=== PATIENT | female | born 1945 | race Caucasian/White ===

== ENCOUNTER 2017-05-16 12:30 | Outpatient (RCR) | payer MEDICARE, MEDICAID, SELFPAY | END 2017-05-16 13:00 | disposition home or self-care (01) | LOC: PT 12:30 | PROVIDERS: Family Provider Internal Medicine; PCP Internal Medicine; Visit Provider Internal Medicine | DX: I69.354 Hemiplegia and hemiparesis following cerebral infarction affecting left non-dominant side (principal) | CPT/HCPCS: 97110; 97116; 97530; G8978; G8979 ==

== ENCOUNTER → 2018-12-22 14:22 | Outpatient (CLI) | payer MEDICARE, MEDICAID, SELFPAY ==
[2018-12-29 12:53] LABS: KEPPRA (LEVETIRACETAM) 33.2 ug/mL (10.0-40.0)
== END ==
PROVIDERS: Family Provider Internal Medicine; PCP Internal Medicine; Visit Provider Family Medicine Geriatric Medicine
DX: G40.909 Epilepsy, unspecified, not intractable, without status epilepticus (principal)
CPT/HCPCS: 36415; 80177

== ENCOUNTER 2018-12-25 13:58 | Emergency (ER) | payer MEDICARE, MEDICAID, SELFPAY ==
[2018-12-25 14:02] VITALS: BP 85/71; PULSE 113; RESP 17; TEMP 37; O2SAT 94; BMI 31.4
--- NOTE | 2018-12-25 14:44 | EKG12_ITS ---
Test Reason : CP Blood Pressure : / mmHG Vent. Rate : 111 BPM Atrial Rate : 097 BPM P-R Int : 000 ms QRS Dur : 076 ms QT Int : 320 ms P-R-T Axes : 000 010 164 degrees QTc Int : 435 ms Atrial fibrillation Nonspecific ST and T wave abnormality Abnormal ECG Confirmed by JESSY DECKER, REAL ([id number]), video tape editor CONCEPCION PETERSON ([id number]) on 12/26/2018 12:11:11 PM Referred By: JULIANO/GEORGIE Confirmed By:REAL JIMÉNEZ MD
[2018-12-25 15:06] LABS: Absolute Lymphocyte Count 1.02 X10^3/ul (0.83-4.51); Absolute Neutrophil Count 5.5 X10^3/uL (2.0-7.7); Basophil# 0.02 X10^3/uL; Basophil% 0.3 % (0-1); Eosinophil# 0.05 X10^3/uL; Eosinophils% 0.7 % (0-5); Hematocrit 45.8 % (37-47); Hemoglobin 15.3 g/dl (12.0-15.0); Lymphocyte # 1.02 X10^3/ul (4.0); Lymphocyte % 14.4 % (19-41); Mean Corp Hgb Conc 33.4 g/gl (32-36); Mean Corpuscular Hgb 30.8 pg (27.0-32.0); Mean Corpuscular Volume 92.3 fL (81-99); Mean Platelet Vol. 10.7 fl (6.2-12.0); Monocyte# 0.55 X10^3/uL; Monocyte% 7.8 % (0-10); Neutrophil # 5.45 X10^3/uL (2.7-7.7); Neutrophil % 76.8 % (47-70); Platelet Count 295 K/mm3 (150-450); RBC Distribution Width CV 13.2 % (11.6-14.6); RBC Distribution Width SD 44.2 fl (35.1-43.9); Red Blood Count 4.96 M/mm3 (4.2-5.4); White Blood Count 7.1 K/mm3 (4.4-11.0)
[2018-12-25 15:07] VITALS: BP 119/77; PULSE 98; RESP 16; O2SAT 95; O2SAT 96
[2018-12-25 15:10] LABS: POSITIVE COUNT NO; POSITIVE DIFFERENTIAL NO; POSITIVE MORPHOLOGY NO
[2018-12-25 15:17] LABS: Anion Gap 6 (5-15); BUN 20 mg/dL (7-18); BUN/Creat Ratio 19.8 RATIO (10-20); Calcium,Total 9.9 mg/dL (8.5-10.1); Chloride 104 mmol/L (98-107); Creatinine, Serum 1.01 mg/dL (0.55-1.02); EST Glomerular Filtration Rate 57 mL/min (>60); Est Glom Filt Rate - Afr Amer 69 mL/min (>60); Estimated Creatinine Clearance 39.82 ml/min; Glucose 103 mg/dL (74-106); Sodium Level 141 mmol/L (136-145)
[2018-12-25] MEDS: 0.9% Normal Saline 1,000 ML 150 ML IV (15:18)
[2018-12-25] MEDS: dilTIAZem 25 MG/5 ML Vial 10 MG IV BOLUS (15:19)
[2018-12-25 15:37] LABS: BNP,B-Type NATRIURETIC PEPTIDE 71.2 pg/mL (0-100)
--- NOTE | 2018-12-25 15:39 | ED.DCSUM_ITS ---
History of Present Illness Chief Complaint: Palpitations Informant: Patient, Family Narrative: Patient was advised to come to the emergency department because of fast irregular pulse. She has no thoracic symptoms except for orthopnea that has been there for over a year. 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 She is mostly bed-ridden and wheelchair dependent. She has chronic edema of both legs that is unchanged. After her stroke, she had a seizure, and was put on Keppra which has been keeping her seizure-free for the past 2 years. Daughter witnessed the first seizure since then 5 days ago. She initially had twitching of her left lower extremity, this was preceded by loss of consciousness and what appeared to be tonic phase but she denies convulsing of her extremities. Saw her doctor the next day who sent out a Keppra level. Also seen by home health nurse who also reevaluated today and detected the fast irregular heartbeat, this was present the day after the seizure but it was thought to be related to the seizure, potentially. She has no history of cardiac dysrhythmias. She denies feeling any palpitations at any point time in the past week, or chest discomfort. She states she was recently diagnosed with breast cancer within the past 2 months and is still being worked up as an outpatient with regards to this. She has felt very stressed and anxious regarding this. - Past Medical History (1) Seizure disorder as sequela of cerebrovascular accident Status: Chronic (2) Hyperlipidemia Status: Chronic (3) CVA (cerebral vascular accident) Status: Chronic (4) HTN (hypertension) Status: Chronic Past Medical History - Allergies and Home Meds Allergies/Adverse Reactions: Allergies naproxen Adverse Reaction (Verified 12/25/18 14:02) Swelling Primary Care Physician: Osbaldo Petersen Chi, MD [Primary Care Provider] - Surgical History: pacemaker implantation Lives: With Family Smoking Status: Never smoker - Family History Maternal Family History: Reports: Heart Disease - age 89 Sibling Family History: Reports: Stroke Paternal Family History: Reports: Cancer - age 64 Review of Systems General: Denies: Chills, Fever, Sweats Eyes: Denies: Visual changes - bilaterally, Diplopia ENT: Denies: Rhinorrhea, Sore throat Cardiovascular: Denies: Chest pain, Palpitations Respiratory: Reports: Orthopnea. Denies: Dyspnea, Cough, Dyspnea on exertion Gastrointestinal: Denies: Abdominal pain, Nausea, Vomiting, Diarrhea, Melena, Hematochezia Genitourinary: Denies: Dysuria, Hematuria, Frequency Musculoskeletal: Reports: Swelling - BLE chronic. Denies: Back pain, Extremity Pain Skin: Denies: Rash, Wounds Neurological: Reports: Weakness - Pre-existing left-sided, unchanged, Numbness - Pre-existing left-sided, unchanged. Denies: Headache Physical Exam Vital Signs/Narrative: Vital Signs Temp Pulse Resp BP Pulse Ox 12/25/18 15:07 98 16 119/77 96 12/25/18 14:02 98.6 F 113 H 17 85/71 L 94 Inital Vital Signs reviewed: Yes General: Well nourished, Well developed, No Acute Distress Head: Normocephalic, Atraumatic Eyes: Perrl, EOMI ENT: Moist mucous membranes, No rhinorrhea Neck: Supple, Nontender Cardiovascular: No murmurs, Irregular, Tachycardia Respiratory: No distress, CTA bilaterally, Chest nontender, Diminished - throughout, symmetrically Abdomen: Soft, Nontender, Nondistended, Normal bowel sounds Back: Nontender, Normal Inspection Extremities: Nontender, Edema - 2+ BLE, symmetric. Negative for: Calf Tenderness Skin: Normal color, No rash, No Trauma Neurological: Alert, Oriented x3, Cranial nerves II-XII grossly intact, Parasthesia - LUE and LLE, Weakness - w/ contractures LUE and LLE Psychological: Normal affect, Normal Mood Diagnostic/Tx/Re-eval Laboratory Tests 12/25/18 12/25/18 12/25/18 Range/Units 15:20 14:55 14:45 WBC 7.1 (4.4-11.0) K/mm3 RBC 4.96 (4.2-5.4) M/mm3 Hgb 15.3 H (12.0-15.0) g/dl Hct 45.8 (37-47) % MCV 92.3 (81-99) fL MCH 30.8 (27.0-32.0) pg MCHC 33.4 (32-36) g/gl RDW 13.2 (11.6-14.6) % RDW Differential 44.2 H (35.1-43.9) fl Plt Count 295 (150-450) K/mm3 MPV 10.7 (6.2-12.0) fl Immature Gran % (Auto) 0.000 (0.0-0.9) % Neut % (Auto) 76.8 H (47-70) % Lymph % (Auto) 14.4 L (19-41) % [place] % (Auto) 7.8 (0-10) % Eos % (Auto) 0.7 (0-5) % Baso % (Auto) 0.3 (0-1) % Absolute Neuts (auto) 5.5 (2.0-7.7) X10^3/uL Absolute Lymphs (auto) 1.02 (0.83-4.51) X10^3/ul Total Counted Not Reportable APTT 36.0 (24.1-36.2) Seconds Sodium (136-145) mmol/L Potassium (3.5-5.1) mmol/L Chloride (98-107) mmol/L Carbon Dioxide (21.0-32.0) mmol/L Anion Gap (5-15) BUN (7-18) mg/dL Creatinine (0.55-1.02) mg/dL Estim Creat Clear Calc ml/min Est GFR (MDRD) Af Amer (>60) mL/min Est GFR (MDRD) Non-Af (>60) mL/min BUN/Creatinine Ratio (10-20) RATIO Glucose (74-106) mg/dL Calcium (8.5-10.1) mg/dL Troponin I (<0.045) ng/mL B-Natriuretic Peptide 71.2 (0-100) pg/mL 12/25/18 Range/Units 14:45 WBC (4.4-11.0) K/mm3 RBC (4.2-5.4) M/mm3 Hgb (12.0-15.0) g/dl Hct (37-47) % MCV (81-99) fL MCH (27.0-32.0) pg MCHC (32-36) g/gl RDW (11.6-14.6) % RDW Differential (35.1-43.9) fl Plt Count (150-450) K/mm3 MPV (6.2-12.0) fl Immature Gran % (Auto) (0.0-0.9) % Neut % (Auto) (47-70) % Lymph % (Auto) (19-41) % [place] % (Auto) (0-10) % Eos % (Auto) (0-5) % Baso % (Auto) (0-1) % Absolute Neuts (auto) (2.0-7.7) X10^3/uL Absolute Lymphs (auto) (0.83-4.51) X10^3/ul Total Counted APTT (24.1-36.2) Seconds Sodium 141 (136-145) mmol/L Potassium 4.0 (3.5-5.1) mmol/L Chloride 104 (98-107) mmol/L Carbon Dioxide 31.0 (21.0-32.0) mmol/L Anion Gap 6 (5-15) BUN 20 H (7-18) mg/dL Creatinine 1.01 (0.55-1.02) mg/dL Estim Creat Clear Calc 39.82 ml/min Est GFR (MDRD) Af Amer 69 (>60) mL/min Est GFR (MDRD) Non-Af 57 L (>60) mL/min BUN/Creatinine Ratio 19.8 (10-20) RATIO Glucose 103 (74-106) mg/dL Calcium 9.9 (8.5-10.1) mg/dL Troponin I < 0.015 (<0.045) ng/mL B-Natriuretic Peptide (0-100) pg/mL - Rhythm Strip Rhythm Strip: A-fib Rate: 111 Ectopy: None - EKG Initial EKG Interpretation: Atrial Fibrillation, Non-Specific ST Changes - laterally Prior: Changed - c/w 2016, NSR - Medical Decision Making Blood work is unremarkable including BNP. The patient really wanted to pick and choose her work-up here in the emergency department; I wanted to perform a CT of the head to ensure she had no bleeding or worsening of her stroke given her rare breakthrough seizure while compliant with Keppra. She adamantly refused the CT of the head, mainly because of the dose of radiation, we discussed the risk and benefits of this and her recent diagnosis of breast cancer, she understands but still refuses the test. Similarly, she refused chest x-ray. I told her I was concerned about possibility of pleural effusions since she was having orthopnea, and since this may mean admission to the hospital if she was symptomatic with it. She understands this and refuses, saying that she had a chest x-ray recently and it was unremarkable and her orthopnea has been present for over a year and is unchanged. I gave her Cardizem and IV fluids, her pressure remained stable and over 100 systolic, her heart rate remained controlled between 70 and 95. She had no symptoms while in the emergency department or seizures. I discussed with Dr. Camp, [facility] for cardiology; he recommended that we start Cardizem CD 180 mg daily while discontinuing the Procardia XL. He also recommended after we discussed her neurologic status and low risk for fall/injury, that we start Eliquis 5 mg twice daily and discontinue the Plavix, continuing the aspirin and her other medications. I discussed this with the patient, she adamantly refuses to start anticoagulation and states instead, she will accept the higher risk of stroke due to atrial fibrillation and continue her aspirin and Plavix, speaking with cardiology at her scheduled appointment next month. Daughter was present for all of these discussions, they were both very pleasant in their refusal of work-up and care, and according to cardiology recommendation, will be discharged to follow-up as an outpatient with recommended rate control. Since she is refusing anticoagulation I recommend she continue the aspirin and Plavix. I also recommend that she follow-up with her PCP for recheck of her vital signs, they also have a home health nurse to come and check them as well. ED Disposition - Plan for ED Patient: Disposition: Home or Assisted Living Diagnosis: New onset atrial fibrillation, Breakthrough seizure, Seizure disorder as sequela of cerebrovascular accident Instructions: Atrial Fibrillation Prescriptions: Diltiazem CD [Cardizem CD] 180 mg PO DAILY #30 cap Transmission Status: Pending to [id number] Referrals: Osbaldo Petersen Chi, MD [Primary Care Provider] - 1 Week Luís Solitario MD [STAFF PHYSICIAN] - Keep Tony appointment (May call for sooner appointment if available)
[2018-12-25 16:28] VITALS: BP 106/68; PULSE 69; RESP 16; O2SAT 98
[2018-12-25 17:06] VITALS: BP 114/71; PULSE 95; RESP 16; O2SAT 98
[2018-12-25 18:13] VITALS: BP 117/83; PULSE 89; RESP 16
--- NOTE | 2018-12-29 23:29 | ED.RN ---
OPENED CHART FOR PT, ASKING A QUESTION ABOUT WHAT MEDICATION THAT DR JACQUES RECOMMENDED
== END 2018-12-25 18:13 | disposition home or self-care (01) ==
PROVIDERS: Emergency Provider Emergency Medicine; Family Provider Family Medicine Geriatric Medicine; PCP Family Medicine Geriatric Medicine
DX: I48.91 Unspecified atrial fibrillation (principal); I69.354 Hemiplegia and hemiparesis following cerebral infarction affecting left non-dominant side; G40.909 Epilepsy, unspecified, not intractable, without status epilepticus; I10 Essential (primary) hypertension; E78.5 Hyperlipidemia, unspecified; R06.01 Orthopnea; Z74.01 Bed confinement status; Z99.3 Dependence on wheelchair; Z88.6 Allergy status to analgesic agent; Z79.02 Long term (current) use of antithrombotics/antiplatelets; Z79.82 Long term (current) use of aspirin; Z79.899 Other long term (current) drug therapy; Z95.0 Presence of cardiac pacemaker
CPT/HCPCS: 80048; 83880; 84484; 85025; 85730; 93005; 96361; 96374; 99285; J7030; A4216

== ENCOUNTER → 2019-01-23 14:44 | Outpatient (CLI) | payer MEDICARE, MEDICAID, SELFPAY ==
[2019-01-23 13:14] VITALS: BMI 29.8
[2019-01-23 16:25] LABS: T4 Total, Thyroxin 9.7 ug/dL (4.8-13.9)
== END ==
PROVIDERS: Family Provider Internal Medicine; PCP Internal Medicine; Referring Provider Internal Medicine Cardiovascular Disease; Visit Provider Internal Medicine Cardiovascular Disease
DX: I48.91 Unspecified atrial fibrillation (principal)
CPT/HCPCS: 36415; 84436; 84443

== ENCOUNTER → 2019-01-27 06:30 | Outpatient (CLI) | payer MEDICARE, MEDICAID, SELFPAY ==
[2019-01-23 13:14] VITALS: BMI 29.8
--- NOTE | 2019-01-27 06:34 | ECHOCS_ITS ---
Reason For Study: Afib/Flutter Procedure This was a 2D Doppler, Color Flow transthoracic echocardiogram. The study was technically difficult. Contrast injection was performed. Patient was scanned sitting up, patient would not lay on left side or flat for imaging. No Strain performed due to needed use of Definity. Left Ventricle Normal LV size. Left ventricular systolic function is normal. The estimated ejection fraction is 65 %. Unable to assess diastolic dysfunction. No regional wall motion abnormalities noted. Right Ventricle Normal RV size. Normal systolic function. Atria The left atrium is mildly enlarged. Normal right atrium. No doppler evidence for ASD. Mitral Valve There is no mitral annular calcification. Normal mitral valve. Trivial mitral valve insufficiency. Tricuspid Valve Normal tricuspid valve. Trivial tricuspid valve insufficiency. Right ventricular systolic pressure estimated to be 32 mmHg. Aortic Valve Trisinus/trileaflet aortic valve. Mild focal aortic valve thickening. Pulmonic Valve The pulmonic valve is not well visualized. Great Vessels Normal sized aortic root. Pericardium/Pleural No pericardial effusion. Epicardial fat. Medication 22 gauge I.V. with prn adaptor inserted into right arm. Diluted definity 2ml given slow IV push to enhance endocardial definition. MMode/2D Measurements & Calculations LVIDd: 2.8 cm IVSd: 1.2 cm Ao root diam: 3.1 cm LVIDs: 1.7 cm LVPWd: 1.3 cm FS: 37.2 % LAV(MOD-sp4): 48.4 ml LA A4 area: 18.6 cm2 RA A4 area: 12.9 cm2 Time Measurements MV dec time: 0.23 sec Doppler Measurements & Calculations MV E max ramón: 65.7 cm/sec PA V2 max: 105.0 cm/sec TR max ramón: 270.1 cm/sec MV A max ramón: 35.3 cm/sec TR max P.2 mmHg MV E/A: 1.9 Interpretation Summary The study was technically difficult. Contrast injection was performed. Left ventricular systolic function is normal. The estimated ejection fraction is 65 %. The left atrium is mildly enlarged. Trivial mitral valve insufficiency. Trivial tricuspid valve insufficiency. Mild focal aortic valve thickening. Epicardial fat. Right ventricular systolic pressure estimated to be 32 mmHg. Unable to assess diastolic dysfunction. Ordering Physician: Luís Solitario Referring Physician: Nelia Quinonez M.D. Performed By: Bc Herrera RCS
--- NOTE | 2019-01-27 09:37 | STRESSREP ---
Stress Test Report Date: 01-27-19 Procedure: Pharmacologic stress nuclear imaging study Indications: Atrial fibrillation; sick sinus syndrome; permanent pacemaker placement; preoperative cardiovascular evaluation Consent: Per the patient Procedure: The patient underwent pharmacologic (Regadenoson) evaluation with a peak heart rate of 117 beats per minute (79 %predicted maximal heart rate) and a peak blood pressure of 118/70 mmHg. The baseline ECG demonstrated atrial fibrillation; nonspecific ST/T wave abnormality. The peak pharmacologic ECG demonstrated no obvious ECG changes. There were intermittent electronic ventricular paced beats pre-infusion. There was no complaint of chest discomfort during pharmacologic infusion or recovery. The examination was discontinued secondary to completion of protocol. Impression: 1. Pharmacologic (Regadenoson) evaluation 2. Peak pharmacologic ECG with continued atrial fibrillation with nonspecific ST and T wave abnormality. 3. There were intermittent electronic ventricular paced beats pre-infusion. 4. Nuclear images pending Myocardial perfusion imaging study: Technique: The patient was injected with 11.2 millicuries of technetium 99m Cardiolite and subsequently rest SPECT Cardiolite nuclear imaging was obtained in the horizontal long, vertical long, and short axis views. The patient underwent pharmacologic (Regadenoson) evaluation with a peak heart rate of 117 beats per minute (79 % percent predicted maximal heart rate) and a peak blood pressure of 118/70 mmHg. The patient was injected with 34.3 millicuries of technetium 99m Cardiolite and subsequently stress SPECT Cardiolite nuclear imaging was obtained in the horizontal long, vertical long, and short axis views. A gated Cardiolite study at peak stress was obtained. Interpretation: Rest and stress SPECT Cardiolite nuclear imaging status post realignment, normalization, and attenuation correction demonstrate at rest the appearance of diminished tracer uptake in portions of the basal inferior septal, basal inferior, basal inferolateral segments which appears to improve and/or normalize following stress. There is end systolic thickening and brightening. The gated Cardiolite study demonstrates myocardial thickening and inward wall motion. The reported LVEF is 86 %. Impression: 1. Rest and stress SPECT current nuclear imaging demonstrate myocardial perfusion changes at rest which appear to improve and/or normalize following stress appearing compatible with the effects of shifting soft tissue attenuation/artifact with no myocardial perfusion changes considered diagnostic for associated stress-induced myocardial ischemia. 2. The gated Cardiolite study reports an LVEF of 86 %. This note was generated with [employer] software. It may contain incorrect words, spelling, and punctuation that were not noted in checking the note before signing.
== END ==
PROVIDERS: Family Provider Internal Medicine; PCP Internal Medicine; Referring Provider Internal Medicine Cardiovascular Disease; Visit Provider Internal Medicine Cardiovascular Disease
DX: I48.91 Unspecified atrial fibrillation (principal); I48.92 Unspecified atrial flutter; I49.5 Sick sinus syndrome; R06.02 Shortness of breath
CPT/HCPCS: 78452; 93017; 93306; A9500; Q9957; A4216; C8929; J2785

== ENCOUNTER 2023-05-31 10:04 | Observation (INO) | payer MEDICARE, MEDICAID, SELFPAY ==
[2023-05-31] VITALS (11 sets, daily range): BP systolic 130–190; BP diastolic 51–102; PULSE 65–90; RESP 16–22; TEMP 35.6; O2SAT 94–100; BMI 22.6
--- NOTE | 2023-05-31 10:15 | ED.RN ---
Patient has a witnessed seizure that lasted approx. 2 minutes. Pt. was orally suctioned, PIV initiated and nonrebreather placed on patient.
--- NOTE | 2023-05-31 10:22 | CT_ITS ---
STUDY: CT ABDOMEN AND PELVIS WITH CONTRAST REASON FOR EXAM: Female, 77 years old. Abdominal pain. Syncopal episode. RADIATION DOSAGE (If Supplied By Facility): CTDIvol = ( 13.21 ) mGy, DLP = ( 835.31 ) mGycm TECHNIQUE: Transaxial images were obtained from the dome of the diaphragm to the symphysis pubis without oral contrast. IV 100mL Isovue-370 was administered. Sagittal and coronal images were reconstructed. Individualized dose optimization techniques were used for this CT. COMPARISON: None. FINDINGS: Mild degree of increased markings at the lung bases suggest some bibasilar atelectasis. A right-sided dual-chamber pacemaker is seen. Coronary artery calcification. There is decreased attenuation of the liver consistent with steatosis. Multiple small gallstones. Mildly dilated gallbladder lumen. Normal spleen. There is diffuse atrophy of the pancreas. Normal bilateral adrenal glands. Nonobstructive tiny calculi in the right kidney. There is a 1.3 cm calculus in the right renal pelvis. This causes a mild degree of right hydronephrosis. Punctate nonobstructive calculus in the midpole calyx of the left kidney. Normal visualized stomach. Normal small intestine. Large amount of fecal material is seen in the rectosigmoid colon. The appendix is visualized and appears normal. Normal abdominal aorta. Normal inferior vena cava. Normal retroperitoneum. Normal urinary bladder. Calcified fibroid uterus. Normal abdominal wall. There are diffuse degenerative changes of the visualized lumbar spine. CT/Abdomen/Pelvis W IV Cont ONLY IMPRESSION: Multiple small gallstones with mild dilatation of the gallbladder lumen. 1.3 mm calculus in the right renal pelvis causing mild degree of right hydronephrosis. Electronically Signed: Nabil Sloan MD at 12:24 EST ,
--- NOTE | 2023-05-31 10:22 | CT_ITS ---
STUDY: CT BRAIN WITHOUT CONTRAST REASON FOR EXAM: Female, 77 years old. Headache seizure RADIATION DOSAGE (If Supplied By Facility): CTDIvol = ( 44.99 ) mGy, DLP = ( 812.98 ) mGycm TECHNIQUE: Transaxial CT imaging of the brain was performed without administration of intravenous contrast material. Individualized dose optimization techniques were used for this CT. COMPARISON: Comparison is made with prior study May 03, 2016. FINDINGS: Normal soft tissue structures. Normal calvarium. There is mild cerebral atrophy with widening of the extra-axial spaces and ventricular dilatation. Stable encephalomalacia involving the right parietal occipital lobe as well as the medial aspect of the left occipital lobe. Normal basal ganglia and thalami. Normal brainstem. Normal cerebellum. There is no intracranial hemorrhage. There are no findings of an acute ischemic infarction. Normal visualized paranasal sinuses. CT/Brain/Head without Contrast IMPRESSION: Chronic involutional changes of the brain. Stable bilateral emphysematous simulation more prominent on the right side. Electronically Signed: Nabil Sloan MD at 12:18 EST ,
--- NOTE | 2023-05-31 10:22 | EKG12_ITS ---
Test Reason : POSS SEIZERS Blood Pressure : / mmHG Vent. Rate : 127 BPM Atrial Rate : 127 BPM P-R Int : 000 ms QRS Dur : 078 ms QT Int : 256 ms P-R-T Axes : 000 022 178 degrees QTc Int : 372 ms Atrial fibrillation Confirmed by LASHONDA DECKER, MCKINLEY ([id number]), publishing editor NICOLE ROSS ([id number]) on 06/03/2023 1:33:26 P M Referred By: Confirmed By:VITO GALLEGO MD
--- NOTE | 2023-05-31 10:25 | EDS_ITS ---
HPI History of Present Illness Chief Complaint: Seizure Informant: patient, family and EMS Narrative Narrative: 77-year-old female with a history of stroke and seizure disorder presenting to the emergency room following an unresponsive episode. Reported that the patient has been constipated over the past several days. Today she was having a large bowel movement and began to have a seizure. Family states that she had a very large bowel movement. Seizures seem to last longer than normal. She came out of it and was complaining of rectal pain. Patient is reportedly on apixaban for atrial fibrillation/stroke. Patient has not yet had her morning medications. Patient herself is having a extremely difficult time relaying any information. He male in the room is answering his phone multiple times as the daughter is calling. The phone is not on silence and he picks up and speaks quite loudly into it. This is providing a very chaotic environment and then the patient begins to have a seizure. Daughter states that the patient's seizures are generally very short mild. Reportedly has not missed any doses over the past week. Family states that she typically likes to sit and does not like to roll to 1 side or the other. [facility] Medical History Atrial fibrillation Bilateral breast cancer Bradycardia Cardiac pacemaker in situ CVA (cerebral vascular accident) Essential hypertension Hyperlipidemia Palpitations Seizure disorder as sequela of cerebrovascular accident Sick sinus syndrome Home Medications aspirin 81 mg chewable tablet 81 mg PO DAILY@0800 04/23/15 [History Last Taken 12/25/18] baclofen 10 mg tablet 5 mg PO QHS 06/03/15 [History Last Taken 12/24/18] levetiracetam 500 mg tablet 500 mg PO BID #60 tabs 02/02/16 [Rx Last Taken 12/25/18] carboxymethylcellulose 0.5 %-glycerin 0.9 % eye drops 2 drp EACH EYE DAILY PRN PRN Dry Eye 12/25/18 [History Last Taken 12/25/18] multivitamin-iron 9 mg-folic acid 400 mcg-calcium and minerals tablet 1 tab PO DAILY supplement 12/25/18 [History Last Taken 12/25/18] polyethylene glycol 3350 17 gram/dose oral powder 17 gm PO DAILY constipation 12/25/18 [History Last Taken 12/25/18] albuterol sulfate 90 mcg/actuation aerosol inhaler (Ventolin HFA) 2 puff inhalation Q4H PRN shortness of breath or wheezing 05/26/19 [History Last Taken Unknown] apixaban 5 mg tablet (Eliquis) 5 mg PO BID #180 tabs 05/26/19 [Rx Last Taken Unknown] atorvastatin 80 mg tablet 80 mg PO QHS #90 tabs 05/26/19 [Rx Last Taken Unknown] prochlorperazine maleate 10 mg tablet (Compazine) 10 mg PO Q6H PRN 05/26/19 [History Last Taken Unknown] tramadol 50 mg tablet 50 mg PO BID PRN pain 05/26/19 [History Last Taken Unknown] valsartan 160 mg tablet 160 mg PO DAILY #90 tabs 05/26/19 [Rx Last Taken Unknown] vit C,E,zinc,copper-xxywr8r 250 mg-lutein 5 mg-zeaxanthin 1 mg capsule (Ocuvite Adult 50 Plus) 1 cap PO DAILY 05/26/19 [History Last Taken Unknown] diltiazem HCl 180 mg capsule,extended release 24 hr 180 mg PO DAILY #30 caps 06/05/19 [Rx Last Taken Unknown] Allergy/AdvReac Type Severity Reaction Status Date / Time Sulfa (Sulfonamide Allergy Unknown Unknown Verified 05/26/19 15:49 Antibiotics) tetracycline Allergy Unknown Unknown Verified 05/26/19 15:49 naproxen AdvReac Swelling Verified 05/26/19 15:49 Family History Mother Heart disease Diabetes Hypertension Cancer breast Father Cancer Brother CVA (cerebral vascular accident) Surgical History History of section History of partial mastectomy of left breast Hx of total mastectomy of right breast Social History Smoking Status: Never smoker alcohol intake: never substance use type: does not use caffeine: No ROS ROS ED Constitutional Constitutional ED: Denies chills, fever(s) or weight loss Eyes Eyes: Denies change in vision or diplopia ENT ENT ED: Denies ear pain, rhinorrhea or sore throat Cardiovascular Cardiovascular: Denies chest pain, orthopnea, palpitations or racing heartbeat Respiratory/Chest Respiratory/Chest: Denies cough, dyspnea or orthopnea Gastrointestinal Gastrointestinal: Reports abdominal pain and constipation; Denies diarrhea, nausea or vomiting Genitourinary Genitourinary ED: Denies dysuria, hematuria or urinary frequency Musculoskeletal Musculoskeletal: Denies arthralgias or myalgias Integumentary Denies abscess or rash Neurologic Neurologic: Reports headache(s) and other Details: Seizure ; Denies weakness Psychiatric Psychiatric: Denies anxiety, depression, suicidal ideation or suicidal thoughts Endocrine Endocrinology: Denies polydipsia, polyphagia or polyuria Allergic/Immunologic Allergic/Immunologic ED: Denies mouth swelling, tongue swelling or urticaria EXAM Physical Exam Const Vital Signs: 05/31/23 10:05 05/31/23 10:32 05/31/23 10:33 Temperature 96.0 F L Temperature Source Temporal Pulse Rate 65 Respiratory Rate 22 H Respiratory Effort Normal Blood Pressure 190/102 H Blood Pressure Mean 131 Pulse Ox 100 97 Oxygen Delivery Method Room Air Nasal Cannula Oxygen Flow Rate (L/min) 2 05/31/23 11:35 05/31/23 11:36 Temperature Temperature Source Pulse Rate 90 Respiratory Rate 20 H Respiratory Effort Blood Pressure 143/55 H Blood Pressure Mean 84 Pulse Ox 94 Oxygen Delivery Method Nasal Cannula Oxygen Flow Rate (L/min) 4 Positive well nourished and well developed General Appearance ED: well developed HEENT Reports normocephalic, head/scalp atraumatic and moist mucous membranes Eyes PERRL and EOMs intact bilaterally Neck no lymphadenopathy, supple and no JVD Resp normal respiratory effort and clear to auscultation bilaterally Cardio regular rate, regular rhythm and no murmurs GI normal to inspection, nondistended, normoactive bowel sounds and non-tender Palpation: soft Narrative: There is evidence of an anal fissure in the 2 o'clock position. Patient has ext ensive external hemorrhoidal disease. No thrombosed hemorrhoids noted. The buttocks are of purpleish hue. Back/Spine no CVA tenderness and normal ROM Extremity normal to inspection General Extremety ED: Negative for edema General Extremity: Negative for edema Neuro Neuro Narrative: Patient is holding her head moaning quite loudly. I am able to understand that she is telling me that her rectum hurts. Sensorium / Orientation: alert Psych mental status grossly normal Mood & Affect: Negative for depressed or tearful Skin no rashes or lesions noted and no wounds MDM MDM MDM Narrative Medical decision making narrative: Patient's generalized seizure lasted approximately 2 minutes. It terminated on its own. Keppra was ordered. Apparently shortly thereafter the patient reentered into a another seizure. This 1 lasted approximately 20 to 30 seconds. She was given a milligram of Ativan. Patient's white count is 10.8. CT of the brain is negative. CT of the abdomen pelvis demonstrates a large amount of stool in the rectum consistent with her history of constipation. There is a 1.5 mm stone in the renal pelvis. Urinalysis demonstrates 10-25 white cells 1+ bacteria negative nitrates. There is blood noted. Culture was sent and she received Rocephin. Patient received a total of 1 g of Keppra IV. Patient also had lidocaine placed for rectal discomfort. Hospitalist service requested neurology consult. I spoke with Dr. Gilliam at [facility]. They do not feel that a EEG is needed at this point. Recommend observation in the hospital. I think this is reasonable. I will speak with the hospitalist again. History & Record Review Discussion w/independent historian: EMS personnel and Family Lab Data Attestation: I reviewed the patient's lab results. Labs: Laboratory Results - last 24 hr 05/31/23 05/31/23 10:19 10:55 WBC 10.8 RBC 4.37 Hgb 13.4 Hct 43.0 MCV 98.4 MCH 30.7 MCHC 31.2 L RDW Std Deviation 47.9 H RDW Coeff of Marilin 13.2 Plt Count 299 MPV 10.5 Immature Gran % (Auto) 0.700 Neut % (Auto) 55.6 Lymph % (Auto) 29.2 Brown % (Auto) 13.0 H Eos % (Auto) 1.2 Baso % (Auto) 0.3 Absolute Neuts (auto) 6.0 Absolute Lymphs (auto) 3.14 Nucleated RBC % 0 Sodium 145 Potassium 3.9 Chloride 108 H Carbon Dioxide 22.0 Anion Gap 15 BUN 21 H Creatinine 1.21 H Estim Creat Clear Calc 34.16 Est GFR (MDRD) Af Amer 56 L Est GFR (MDRD) Non-Af 46 L BUN/Creatinine Ratio 17.4 Glucose 142 H Calcium 10.1 Total Bilirubin 0.70 AST 25 ALT 13 Alkaline Phosphatase 114 Total Protein 7.0 Albumin 3.5 Globulin 3.5 Albumin/Globulin Ratio 1.0 Urine Color Red Urine Clarity Turbid Urine pH 5.0 Ur Specific [place] 1.025 Urine Protein 100 H Urine Glucose (UA) Normal Urine Ketones 15 H Urine Occult Blood 250 H Urine Nitrite Negative Urine Bilirubin Negative Urine Urobilinogen Normal Ur Leukocyte Esterase 500 H Urine RBC > 100 SEEN Urine WBC 10-25 SEEN Ur Squamous Epith Cells 0 SEEN Urine Bacteria 1+ Urine Mucus 0 SEEN Radiography Diagnostic Testing: Clinical Impression(s) from Imaging Studies Abdomen/Pelvis CT 05/31/23 10:22 IMPRESSION: Multiple small gallstones with mild dilatation of the gallbladder lumen. 1.3 mm calculus in the right renal pelvis causing mild degree of right hydronephrosis. Electronically Signed: Nabil Sloan MD at 12:24 EST , Brain CT 05/31/23 10:22 IMPRESSION: Chronic involutional changes of the brain. Stable bilateral emphysematous simulation more prominent on the right side. Electronically Signed: Nabil Sloan MD at 12:18 EST , Chest X-Ray 05/31/23 11:24 IMPRESSION: No acute abnormality is seen. Electronically Signed: Nabil Sloan MD at 12:19 EST , EKG Initial EKG: Attestation: I personally reviewed and interpreted this EKG as follows: Comments: Atrial fibrillation with ventricular rate around 100 bpm. Discharge Plan Triage Chief Complaint: Seizure Other Complaint: Syncope ED Provider: Jed Goodman Dx/Rx/DC Orders Clinical Impression: Epileptic seizure, Acute constipation, Acute anal fissure, Anticoagulated Prescriptions: No Action valsartan 160 mg tablet 160 mg PO DAILY Qty: 90 3RF atorvastatin 80 mg tablet 80 mg PO QHS Qty: 90 3RF Eliquis 5 mg tablet 5 mg PO BID Qty: 180 3RF albuterol sulfate [Ventolin HFA] 90 mcg/actuation HFA aerosol inhaler 2 puff INHALATION Q4H PRN (Reason: shortness of breath or wheezing) prochlorperazine maleate [Compazine] 10 mg tablet 10 mg PO Q6H PRN tramadol 50 mg tablet 50 mg PO BID PRN (Reason: pain) Ocuvite Adult 50 Plus 250-5-1 mg capsule 1 cap PO DAILY aspirin 81 MG tablet,chewable 81 mg PO DAILY@0800 Patient Comments: HEART HEALTH/ PREVENTION baclofen 10 MG tablet 5 mg PO QHS Patient Comments: MUSCLE RELAXER levetiracetam 500 MG tablet 500 mg PO BID Qty: 60 0RF Rx Instructions: causes drowsiness, for seizures polyethylene glycol 3350 238 GM powder 17 gm PO DAILY carboxymethylcellulose-glycern 15 ML drops 2 drp EACH EYE DAILY PRN PRN (Reason: Dry Eye) [id number]-calcium-mins 1 EACH tablet 1 tab PO DAILY diltiazem HCl 180 mg capsule,extended release 24hr 180 mg PO DAILY Qty: 30 12RF Primary Care Provider: Nelia Quinonez Referrals: Nelia Quinonez MD [Primary Care Provider] -
[2023-05-31] MEDS: 0.9% Normal Saline (1000mL) 1,000 ML 1000 ML IV (10:32)
[2023-05-31 10:41] LABS: Absolute Lymphocyte Count 3.14 X10^3/uL (0.83-4.51); Basophil# 0.03 X10^3/uL; Basophil% 0.3 % (0-1); Eosinophil# 0.13 X10^3/uL; Eosinophils% 1.2 % (0-5); Hemoglobin 13.4 g/dL (12.0-15.0); Lymphocyte # 3.14 X10^3/ul (0.83-4.51); Lymphocyte % 29.2 % (19-41); Mean Corp Hgb Conc 31.2 g/dL (32-36); Mean Corpuscular Hgb 30.7 pg (27.0-32.0); Mean Corpuscular Volume 98.4 fL (81-99); Mean Platelet Vol. 10.5 fl (6.2-12.0); NRBC Flagged by Analyzer 0 % (0-5); Neutrophil # 5.98 X10^3/uL (2.7-7.7); Neutrophil % 55.6 % (47-70); Platelet Count 299 K/mm3 (150-450); RBC Distribution Width CV 13.2 % (11.6-14.6); RBC Distribution Width SD 47.9 fl (35.1-43.9); Red Blood Count 4.37 M/mm3 (4.2-5.4); White Blood Count 10.8 K/mm3 (4.4-11.0)
[2023-05-31 10:53] LABS: AST(SGOT) 25 U/L (15-37); Alanine Aminotransfer ALT/SGPT 13 U/L (13-56); Albumin, Serum 3.5 g/dL (3.2-5.0); Alkaline Phosphatase 114 U/L (45-117); Anion Gap 15 (5-15); BUN 21 mg/dL (7-18); BUN/Creat Ratio 17.4 RATIO (10-20); Calcium,Total 10.1 mg/dL (8.5-10.1); Chloride 108 mmol/L (98-107); Creatinine, Serum 1.21 mg/dL (0.55-1.02); EST Glomerular Filtration Rate 46 mL/min (>60); Est Glom Filt Rate - Afr Amer 56 mL/min (>60); Estimated Creatinine Clearance 34.16 ml/min; Globulin 3.5 g/dL (2.2-4.2); Glucose 142 mg/dL (74-106); Potassium 3.9 mmol/L (3.5-5.1); Sodium Level 145 mmol/L (136-145)
[2023-05-31 11:01] LABS: Mucous, Urine 0 SEEN /hpf (<or=2+); Squamous Epithelial Cells - UA 0 SEEN /hpf (5-10)
[2023-05-31] MEDS: LORazepam 2 MG/ML Syringe 1 MG IV (11:02)
[2023-05-31] MEDS: levETIRAcetam IV 500 MG in 0.9% Normal Saline (100mL Bag) 100 ML 400 MG IV ×2 (11:02→15:06)
[2023-05-31 11:06] LABS: Color, Urine Red (Yellow); Glucose, Dipstick Normal (Normal); Ketone-Dipstick 15 mg/dl (Negative); Leukocyte Esterase-Dipstick 500 /ul (Negative); Nitrite-Dipstick Negative (Negative); Occult Blood-Urine 250 /ul (Negative); Protein-Dipstick 100 mg/dl (Negative); Specific Gravity, Urine 1.025 (1.002-1.030); Urine Bilirubin Dipstick Negative (Negative); Urine Clarity Turbid (Clear); Urine Urobilinogen Normal (Normal)
[2023-05-31 11:21] LABS: Red Blood Cells-Urine > 100 SEEN /hpf (0-5)
[2023-05-31 11:23] LABS: Bacteria 1+ /hpf (None Seen); White Blood Cells 10-25 SEEN /hpf (0-5)
--- NOTE | 2023-05-31 11:24 | RAD_ITS ---
STUDY: X-RAY CHEST REASON FOR EXAM: Female, 77 years old. Syncope TECHNIQUE: Single AP portable view of the chest. COMPARISON: Comparison is made with prior study April 23, 2015. FINDINGS: EKG electrodes are seen. A right-sided dual-chamber pacemaker is present. The lungs are clear and expanded. Stable calcified granulomas. There is no demonstrated pleural abnormality. Normal size heart. Normal mediastinum and olga lidia. Normal visualized pulmonary arteries. Normal visualized aortic arch and descending thoracic aorta. There are diffuse degenerative changes of the visualized thoracic spine. Conjoined calcification in the proximal left humeral metaphysis. There is no demonstrated abnormality of the visualized soft tissue structures of the upper abdomen. RAD/Chest 1 View (Portable) IMPRESSION: No acute abnormality is seen. Electronically Signed: Nabil Sloan MD at 12:19 EST ,
[2023-05-31] MEDS: Ceftriaxone 1 GM/50 ML BAG IV (12:44)
--- NOTE | 2023-05-31 15:03 | HP.PCM.HOS_ITS ---
HPI - General General Date of Admission: 05/31/23 Date of Service: 05/31/23 Chief Complaint: Recurrent seizure HPI Narrative PARVEEN DICKSON, is a 77-year-old female with history of A-fib, stroke, seizure disorder, hypertension, breast cancer, pacemaker presented to [facility] 05/31/2023 due to an unresponsive episode. Patient has been constipated for several days and today she was having large bowel movement and began to have a seizure which seemed to last longer than normal per family. When she came out of it she was complaining of rectal pain. In the ED patient was noted to have a witnessed seizure of 2 minutes that terminated spontaneously and then went into another seizure that lasted 20 to 30 seconds and was given a milligram of Ativan and Keppra was ordered. Patient on Keppra chronically at home and reportedly has not missed doses. Lab workup in ED with slight increase in creatinine from baseline with no criteria met for SON and UA with possible UTI but otherwise unremarkable. Neurology evaluated patient in ED and did not think she needed repeat EEG or transfer to another facility and recommended g iving thousand total of the Keppra in the ED and that they will follow on the floor. Hospitalist contacted for admission. Patient seen at bedside with family members present who endorse history as above. Very difficult to obtain history as patient very upset about being admitted and tearful and frequently derails during conversation however was able to endorse a frontal headache and that she has been having burning on urination. [facility] Medical History Atrial fibrillation Bilateral breast cancer Bradycardia Cardiac pacemaker in situ CVA (cerebral vascular accident) Essential hypertension Hyperlipidemia Palpitations Seizure disorder as sequela of cerebrovascular accident Sick sinus syndrome Home Medications aspirin 81 mg chewable tablet 81 mg PO DAILY@0800 04/23/15 [History Last Taken 12/25/18] baclofen 10 mg tablet 5 mg PO QHS 06/03/15 [History Last Taken 12/24/18] levetiracetam 500 mg tablet 500 mg PO BID #60 tabs 02/02/16 [Rx Last Taken 12/25/18] carboxymethylcellulose 0.5 %-glycerin 0.9 % eye drops 2 drp EACH EYE DAILY PRN PRN Dry Eye 12/25/18 [History Last Taken 12/25/18] multivitamin-iron 9 mg-folic acid 400 mcg-calcium and minerals tablet 1 tab PO DAILY supplement 12/25/18 [History Last Taken 12/25/18] polyethylene glycol 3350 17 gram/dose oral powder 17 gm PO DAILY constipation 12/25/18 [History Last Taken 12/25/18] albuterol sulfate 90 mcg/actuation aerosol inhaler (Ventolin HFA) 2 puff inhalation Q4H PRN shortness of breath or wheezing 05/26/19 [History Last Taken Unknown] apixaban 5 mg tablet (Eliquis) 5 mg PO BID #180 tabs 05/26/19 [Rx Last Taken Unknown] atorvastatin 80 mg tablet 80 mg PO QHS #90 tabs 05/26/19 [Rx Last Taken Unknown] prochlorperazine maleate 10 mg tablet (Compazine) 10 mg PO Q6H PRN 05/26/19 [History Last Taken Unknown] tramadol 50 mg tablet 50 mg PO BID PRN pain 05/26/19 [History Last Taken Unknown] valsartan 160 mg tablet 160 mg PO DAILY #90 tabs 05/26/19 [Rx Last Taken Unknow n] vit C,E,zinc,copper-feoll0g 250 mg-lutein 5 mg-zeaxanthin 1 mg capsule (Ocuvite Adult 50 Plus) 1 cap PO DAILY 05/26/19 [History Last Taken Unknown] diltiazem HCl 180 mg capsule,extended release 24 hr 180 mg PO DAILY #30 caps 06/05/19 [Rx Last Taken Unknown] Allergy/AdvReac Type Severity Reaction Status Date / Time Sulfa (Sulfonamide Allergy Unknown Unknown Verified 05/26/19 15:49 Antibiotics) tetracycline Allergy Unknown Unknown Verified 05/26/19 15:49 naproxen AdvReac Swelling Verified 05/26/19 15:49 Family History Mother Heart disease Diabetes Hypertension Cancer breast Father Cancer Brother CVA (cerebral vascular accident) Surgical History History of section History of partial mastectomy of left breast Hx of total mastectomy of right breast Social History Smoking Status: Never smoker alcohol intake: never substance use type: does not use caffeine: No ROS ROS Narrative General: Denies fever/chills HENT: Has frontal headache, denies stuffy nose, denies sore throat EYES: Denies changes in vision Resp: Some cough, denies shortness of breath Cardiac: Denies chest pain GI: Had been having constipation : Burning on urination Extremity: Denies swelling MSK: Denies weakness Neuro: Recurrent seizure but denied any other focal complaints Heme: Denies any bleeding or bruising Skin: Denies rashes Psychiatric: Tearful and upset Vital Signs Vital Signs Vital Signs: 05/31/23 10:05 05/31/23 10:32 05/31/23 10:33 Temperature 96.0 F L Temperature Source Temporal Pulse Rate 65 Respiratory Rate 22 H Respiratory Effort Normal Blood Pressure 190/102 H Blood Pressure Mean 131 Pulse Ox 100 97 Oxygen Delivery Method Room Air Nasal Cannula Oxygen Flow Rate (L/min) 2 05/31/23 11:35 05/31/23 11:36 Temperature Temperature Source Pulse Rate 90 Respiratory Rate 20 H Respiratory Effort Blood Pressure 143/55 H Blood Pressure Mean 84 Pulse Ox 94 Oxygen Delivery Method Nasal Cannula Oxygen Flow Rate (L/min) 4 Weight Weight: 59.9 kg Body Mass Index (BMI) 22.6 Physical Exam Narrative General: Alert, tearful HEENT: Atraumatic Eyes: Anicteric, extraocular movements grossly intact Neck: Supple Respiratory: No overt wheezes or rhonchi, normal respiratory effort Cardiovascular: Regular rate GI: Soft, slightly tender diffusely without rebound, guarding, rigidity, nondis tended Extremities: No significant pitting edema Musculoskeletal: Moving all extremities Neuro: No overt focal neurological deficits but patient tearful and not very cooperative so unable to perform full neuroexam Skin: No rashes appreciated Psych: Tearful and not particularly cooperative Results Lab / Micro Data 05/31/23 10:19 05/31/23 10:19 Labs: Laboratory Results - last 24 hr 05/31/23 10:19: WBC 10.8, RBC 4.37, Hgb 13.4, Hct 43.0, MCV 98.4, MCH 30.7, MCHC 31.2 L, RDW Std Deviation 47.9 H, RDW Coeff of Marilin 13.2, Plt Count 299, MPV 10.5, Immature Gran % (Auto) 0.700, Neut % (Auto) 55.6, Lymph % (Auto) 29.2, [place] % (Auto) 13.0 H, Eos % (Auto) 1.2, Baso % (Auto) 0.3, Absolute Neuts (auto) 6.0, Absolute Lymphs (auto) 3.14, Nucleated RBC % 0, Sodium 145, Potassium 3.9, Chloride 108 H, Carbon Dioxide 22.0, Anion Gap 15, BUN 21 H, Creatinine 1.21 H, Estim Creat Clear Calc 34.16, Est GFR (MDRD) Af Amer 56 L, Est GFR (MDRD) Non-Af 46 L, BUN/Creatinine Ratio 17.4, Glucose 142 H, Calcium 10.1, Total Bilirubin 0.70, AST 25, ALT 13, Alkaline Phosphatase 114, Total Protein 7.0, Albumin 3.5, Globulin 3.5, Albumin/Globulin Ratio 1.0 05/31/23 10:55: Urine Color Red, Urine Clarity Turbid, Urine pH 5.0, Ur Specific [place] 1.025, Urine Protein 100 H, Urine Glucose (UA) Normal, Urine Ketones 15 H, Urine Occult Blood 250 H, Urine Nitrite Negative, Urine Bilirubin Negative, Urine Urobilinogen Normal, Ur Leukocyte Esterase 500 H, Urine RBC > 100 SEEN, Urine WBC 10-25 SEEN, Ur Squamous Epith Cells 0 SEEN, Urine Bacteria 1+, Urine Mucus 0 SEEN Imagaing Radiology Impression Abdomen/Pelvis CT 05/31/23 10:22 IMPRESSION: Multiple small gallstones with mild dilatation of the gallbladder lumen. 1.3 mm calculus in the right renal pelvis causing mild degree of right hydronephrosis. Electronically Signed: Nabil Sloan MD at 12:24 EST , Brain CT 05/31/23 10:22 IMPRESSION: Chronic involutional changes of the brain. Stable bilateral emphysematous simulation more prominent on the right side. Electronically Signed: Nabil Sloan MD at 12:18 EST , Chest X-Ray 05/31/23 11:24 IMPRESSION: No acute abnormality is seen. Electronically Signed: Nabil Sloan MD at 12:19 EST , Assessment & Plan Assessment/Plan (1) Epileptic seizure: (2) Essential hypertension: (3) Cardiac pacemaker in situ: (4) Atrial fibrillation: QUALIFIERS: Atrial fibrillation type: paroxysmal Qualified Code(s): I48.0 - Paroxysmal atrial fibrillation PLAN: Plan #Recurrent seizure -With known history of epilepsy -Neurology contacted in ED and do not feel patient needs transferred to higher level of care for EEG or other workup/intervention -Consult neurology -Increase Keppra to thousand twice daily and observe -CT head in ED w/ chronic stable changes, no acute change # UTI/Kidney stone -UA consistent with UTI -Given a dose of Rocephin in ED so we will continue this and await urine culture -CT abd found incidental 1.3mm calculus in R renal pelvis, monitor kidney function, may need outpt referral/eval pending progress and symptoms # Constipation -Will start bowel regimen # History of A-fib/CVA -On aspirin, statin, apixaban -Awaiting med rec completion to resume accurate home medications # Hypertension -Awaiting med rec completion to resume accurate home medications #DVT ppx: On Jade Tan MD Time spent in the patient's overall evaluation,decision-making process, review of diagnostic data, adjustment of management, discussion with other providers, nursing nursing and ancillary staff involved in patient's care documentation, 55 minutes Charges/Coding Visit Charges Inpatient E&M: 67370 Init Hosp L2
[2023-05-31] MEDS: oxyCODONE 5 MG Tablet 2.5 MG PO (18:39)
[2023-05-31] MEDS: Ensure Plus High Protein 120 ML LIQUID PO ×2 (18:44→21:03)
[2023-05-31] MEDS: Psyllium 1 PACKET PO (21:02)
[2023-05-31] MEDS: levETIRAcetam 1,000 MG Tablet 1000 MG PO (21:02)
[2023-05-31] MEDS: Atorvastatin Calcium 80 MG Tablet PO (21:02)
[2023-05-31] MEDS: APIXABAN 5 MG TABLET PO (21:03)
[2023-05-31] MEDS: Menthol/Lanolin/Calamine/Znox 113 GM Tube 1 APPLIC TOPICAL (21:20)
[2023-05-31] MEDS: Nystatin Powder 15gm Bottle 1 APPLIC TOPICAL (21:21)
[2023-06-01] VITALS (7 sets, daily range): BP systolic 130–159; BP diastolic 66–85; PULSE 60–72; RESP 18; TEMP 36.6–37.2; O2SAT 97–98
[2023-06-01] MEDS: oxyCODONE 5 MG Tablet 2.5 MG PO ×4 (00:43→20:27)
[2023-06-01] MEDS: Acetaminophen 325 MG Tablet 650 MG PO ×3 (00:44→20:28)
[2023-06-01 06:23] LABS: Absolute Lymphocyte Count 0.96 X10^3/uL (0.83-4.51); Basophil# 0.02 X10^3/uL; Basophil% 0.3 % (0-1); Eosinophil# 0.04 X10^3/uL; Eosinophils% 0.6 % (0-5); Hematocrit 36.5 % (37-47); Hemoglobin 11.3 g/dL (12.0-15.0); Lymphocyte # 0.96 X10^3/ul (0.83-4.51); Lymphocyte % 14.3 % (19-41); Mean Corpuscular Hgb 29.4 pg (27.0-32.0); Mean Corpuscular Volume 94.8 fL (81-99); Mean Platelet Vol. 11.1 fl (6.2-12.0); Monocyte# 0.67 X10^3/uL; NRBC Flagged by Analyzer 0 % (0-5); Neutrophil # 4.97 X10^3/uL (2.7-7.7); Neutrophil % 74.4 % (47-70); Platelet Count 207 K/mm3 (150-450); RBC Distribution Width CV 13.2 % (11.6-14.6); Red Blood Count 3.85 M/mm3 (4.2-5.4); White Blood Count 6.7 K/mm3 (4.4-11.0)
[2023-06-01 07:02] LABS: ALB/GLOB Ratio 0.9 RATIO (0.9-2.4); AST(SGOT) 26 U/L (15-37); Alanine Aminotransfer ALT/SGPT 13 U/L (13-56); Albumin, Serum 2.7 g/dL (3.2-5.0); Alkaline Phosphatase 90 U/L (45-117); Anion Gap 4 (5-15); BUN 14 mg/dL (7-18); BUN/Creat Ratio 20.9 RATIO (10-20); Calcium,Total 8.8 mg/dL (8.5-10.1); Chloride 107 mmol/L (98-107); Creatinine, Serum 0.67 mg/dL (0.55-1.02); EST Glomerular Filtration Rate 91 mL/min (>60); Est Glom Filt Rate - Afr Amer 110 mL/min (>60); Estimated Creatinine Clearance 41.33 ml/min; Globulin 3.1 g/dL (2.2-4.2); Glucose 83 mg/dL (74-106); Potassium 2.8 mmol/L (3.5-5.1); Protein, Total 5.8 g/dL (6.4-8.2); Sodium Level 141 mmol/L (136-145); Thyroid Stim Hormone (TSH) 0.55 uIU/mL (0.358-3.74)
[2023-06-01] MEDS: Aspirin 81 MG TAB.CHEW PO (08:40)
[2023-06-01] MEDS: Potassium Chloride Oral Tablet 20 MEQ 60 MEQ PO (08:40)
[2023-06-01] MEDS: Potassium Chloride 10mEq/100mL 10 MEQ/100 ML IV.SOLN. 80 MEQ IV BOLUS (08:49)
[2023-06-01] MEDS: levETIRAcetam 1,000 MG Tablet 1000 MG PO ×2 (08:53→20:28)
[2023-06-01 08:54] LABS: Magnesium 2.2 mg/dL (1.6-2.6)
[2023-06-01] MEDS: Ensure Plus High Protein 120 ML LIQUID PO ×3 (08:54→20:28)
[2023-06-01] MEDS: Nystatin Powder 15gm Bottle 1 APPLIC TOPICAL ×2 (08:54→20:29)
[2023-06-01] MEDS: Menthol/Lanolin/Calamine/Znox 113 GM Tube 1 APPLIC TOPICAL ×2 (08:54→20:29)
[2023-06-01] MEDS: APIXABAN 5 MG TABLET PO ×2 (08:55→20:28)
[2023-06-01] MEDS: dilTIAZem CD 180 MG Capsule PO (08:57)
--- NOTE | 2023-06-01 09:20 | NEURO.CONS ---
Assessment and Plan: Neuro Assessment/Plan PARVEEN DICKSON is a 77 F with a past medical history of stroke w L hemiplegia, seizure, being evaluated by Teleneurology for breakthrough seizure in the setting of constipation and UTI. Exam with L sided hemiplegia, some spasticity which is her baseline after the R MCA and LUMBER STRAIGHTENER strokes. Etiology for breakthrough seizure is likely UTI or constipation. Would temporarily increase her Keppra as she she had been feeling poorly last two days and needing the additional 250mg Keppra dose but this did not control her seizures yesterday. Diagnosis: breakthrough seizure Plan: - 3 days of 1000mg BID of Keppra (yesterday recieved a dose, today is day 2, and day 3 will be Saturday). Resume home dose Sunday 06/03 of 500mg BID - treatment of UTI and constipation per primary team. I personally attended this patient and spent a total time of 45 minutes evaluating this patient including clinical assessment, review of chart, medical history imaging, and determining appropriate treatment and workup. HPI Consult Data Date of Consult: 06/01/23 HPI Narrative HPI Narrative: PARVEEN DICKSON, is a 77 F who presents for evaluation after multiple seizures. 77-year-old female with a history of stroke and seizure disorder presenting to the emergency room following an unresponsive episode. Reported that the patient has been constipated over the past several days. Today she was having a large bowel movement and began to have a seizure. Family states that she had a very large bowel movement. Seizures seem to last longer than normal. She came out of it and was complaining of rectal pain. Patient is reportedly on apixaban for atrial fibrillation/stroke. Patient has not yet had her morning medications. Patient herself is having a extremely difficult time relaying any information. He male in the room is answering his phone multiple times as the daughter is calling. The phone is not on silence and he picks up and speaks quite loudly into it. This is providing a very chaotic environment and then the patient begins to have a seizure. Daughter states that the patient's seizures are generally very short mild. Reportedly has not missed any doses over the past week. Family states that she typically likes to sit and does not like to roll to 1 side or the other. From a prior hospital stay in 2019: She had a stroke that left her with hemiplegia on the left side, she lives at home and is cared for by her daughter. She is mostly bed-ridden and wheelchair dependent. She has chronic edema of both legs that is unchanged. After her stroke, she had a seizure, and was put on Keppra which has been keeping her seizure-free for the past 2 years. Daughter witnessed the first seizure since then 5 days ago. She initially had twitching of her left lower extremity, this was preceded by loss of consciousness and what appeared to be tonic phase but she denies convulsing of her extremities. Saw her doctor the next day who sent out a Keppra level. Description of a seizure in 2016: Daughter states that the patient was sitting with her when she got something about her right arm, felt funny and then there was an episode looked like a seizure where her arm has a rhythmic moving with her head turned to the right, eyes rolled back and she was not alert. This lasted 2-3 minutes and then had 10-15 minutes postictal state. Neurologic History: Woke up in the hospital, does not remember. Last seizure was in 2018 when she came in the hospital. Was told to take 1 pill twice a day. Occasionally will know when she is having an off day and takes 1/2 pill extra in afternoon. She has taken this extra pill the last 2 days. Yesterday felt off as well but hadn't had a chance to take her morning medications. Denies pain with urination and frequent urination. Denies having a UTI in the past. No change in other home medications - no recent new or stopped medication. No change in shape, size, appearance of the Keppra. Currently feels back to jackie per pt and daughter. Has been really constipated the last 3 days but had a large bowel movement She does not normally have constipation, Seizure description per daughter - Head went to the R, eyes rolled back, was shaking more on the L side but was on both sides. Right before will start having abnormal breathing. When the squad got there, she was awake and answering some questions appropriately. The 3rd seizure was in the ER and lasted < a minute, was very brief episode which is a normal seizure length. In the ED, her UA was concerning for infection. Had a mild SON on arrival that has since resolved. Does not have an epileptologist/neurologist she follows with. [facility] Medical History Atrial fibrillation Bilateral breast cancer Bradycardia Cardiac pacemaker in situ CVA (cerebral vascular accident) Essential hypertension Hyperlipidemia Palpitations Seizure disorder as sequela of cerebrovascular accident Sick sinus syndrome Home Medications aspirin 81 mg chewable tablet 81 mg PO DAILY@0800 04/23/15 [History Last Taken 12/25/18] baclofen 10 mg tablet 5 mg PO QHS 06/03/15 [History Last Taken 12/24/18] levetiracetam 500 mg tablet 500 mg PO BID #60 tabs 02/02/16 [Rx Last Taken 12/25/18] carboxymethylcellulose 0.5 %-glycerin 0.9 % eye drops 2 drp EACH EYE DAILY PRN PRN Dry Eye 12/25/18 [History Last Taken 12/25/18] multivitamin-iron 9 mg-folic acid 400 mcg-calcium and minerals tablet 1 tab PO DAILY supplement 12/25/18 [History Last Taken 12/25/18] polyethylene glycol 3350 17 gram/dose oral powder 17 gm PO DAILY constipation 12/25/18 [History Last Taken 12/25/18] albuterol sulfate 90 mcg/actuation aerosol inhaler (Ventolin HFA) 2 puff inhalation Q4H PRN shortness of breath or wheezing 05/26/19 [History Last Taken Unknown] apixaban 5 mg tablet (Eliquis) 5 mg PO BID #180 tabs 05/26/19 [Rx Last Taken Unknown] atorvastatin 80 mg tablet 80 mg PO QHS #90 tabs 05/26/19 [Rx Last Taken Unknown] prochlorperazine maleate 10 mg tablet (Compazine) 10 mg PO Q6H PRN 05/26/19 [History Last Taken Unknown] tramadol 50 mg tablet 50 mg PO BID PRN pain 05/26/19 [History Last Taken Unknown] valsartan 160 mg tablet 160 mg PO DAILY #90 tabs 05/26/19 [Rx Last Taken Unknown] vit C,E,zinc,copper-tyovw1z 250 mg-lutein 5 mg-zeaxanthin 1 mg capsule (Ocuvite Adult 50 Plus) 1 cap PO DAILY 05/26/19 [History Last Taken Unknown] diltiazem HCl 180 mg capsule,extended release 24 hr 180 mg PO DAILY #30 caps 06/05/19 [Rx Last Taken Unknown] Allergy/AdvReac Type Severity Reaction Status Date / Time Sulfa (Sulfonamide Allergy Unknown Unknown Verified 05/26/19 15:49 Antibiotics) tetracycline Allergy Unknown Unknown Verified 05/26/19 15:49 naproxen AdvReac Swelling Verified 05/26/19 15:49 Family History Mother Heart disease Diabetes Hypertension Cancer breast Father Cancer Brother CVA (cerebral vascular accident) Surgical History History of section History of partial mastectomy of left breast Hx of total mastectomy of right breast Social History Smoking Status: Never smoker alcohol intake: never substance use type: does not use caffeine: No Vital Signs Vital Signs Vital Signs: 05/31/23 10:05 05/31/23 10:32 05/31/23 10:33 Temperature 96.0 F L Temperature Source Temporal Pulse Rate 65 Respiratory Rate 22 H Respiratory Effort Normal Respiratory Depth Respiratory Pattern Blood Pressure 190/102 H Blood Pressure Mean 131 Pulse Ox 100 97 Oxygen Delivery Method Room Air Nasal Cannula Oxygen Flow Rate (L/min) 2 05/31/23 11:35 05/31/23 11:36 05/31/23 12:00 Temperature Temperature Source Pulse Rate 90 77 Respiratory Rate 20 H 16 Respiratory Effort Respiratory Depth Respiratory Pattern Blood Pressure 143/55 H 130/51 H Blood Pressure Mean 84 77 Pulse Ox 94 98 Oxygen Delivery Method Nasal Cannula Room Air Oxygen Flow Rate (L/min) 4 05/31/23 13:00 05/31/23 14:00 05/31/23 15:00 Temperature Temperature Source Pulse Rate 89 82 78 Respiratory Rate 18 18 18 Respiratory Effort Respiratory Depth Respiratory Pattern Blood Pressure 155/67 H 163/72 H 151/67 H Blood Pressure Mean 96 102 95 Pulse Ox 100 100 100 Oxygen Delivery Method Room Air Room Air Room Air Oxygen Flow Rate (L/min) 05/31/23 15:37 05/31/23 16:00 05/31/23 16:16 Temperature Temperature Source Pulse Rate 77 Respiratory Rate 19 H 18 Respiratory Effort Normal Non-Labored Respiratory Depth Normal Respiratory Pattern Normal Blood Pressure 172/82 H Blood Pressure Mean 112 Pulse Ox 96 95 Oxygen Delivery Method Nasal Cannula Oxygen Flow Rate (L/min) 2 05/31/23 21:50 06/01/23 01:25 06/01/23 05:59 Temperature 98.6 F Temperature Source Oral Pulse Rate 72 Respiratory Rate 18 Respiratory Effort Normal Non-Labored Respiratory Depth Respiratory Pattern Blood Pressure 159/75 H Blood Pressure Mean 103 Pulse Ox 97 Oxygen Delivery Method Nasal Cannula Room Air Room Air Oxygen Flow Rate (L/min) 2 06/01/23 06:25 Temperature 98.0 F Temperature Source Temporal Pulse Rate 62 Respiratory Rate 18 Respiratory Effort Respiratory Depth Respiratory Pattern Blood Pressure 154/73 H Blood Pressure Mean 100 Pulse Ox 98 Oxygen Delivery Method Room Air Oxygen Flow Rate (L/min) Weight Weight: 59.9 kg Body Mass Index (BMI) 22.6 EEG Results Procedure Details EEG Procedure Details: PARVEEN DICKSON is a 77 year old F with a past medical history of , who presents for evaluation of Electroencephalogram on DATE at TIME Physical Exam Narrative -? General: Laying comfortably in bed; in no acute distress. -? HENT: Normal oropharynx and mucosa. Normal external appearance of ears and nose. Exophthalmos. -? Neck: Supple, no pain or tenderness -? CV:? No peripheral edema. -? Pulmonary:? Normal respiratory effort. -? Ext: No cyanosis, edema, or deformity -? Skin: No rash. Normal palpation of skin.? -? Musculoskeletal: full range of motion; no joint tenderness. Normal digits and nails by inspection. No clubbing. -? NEURO: -? Mental Status: The patient was alert and oriented to time, place, and person. Normal recent/remote memory, concentration, and general fund of knowledge. -? Language: speech is clear.? Naming, repetition, fluency, and comprehension intact. -? Cranial Nerves: PERRL 3 mm/brisk. EOMI, visual gao full, no facial asymmetry, facial sensation intact, hearing intact, tongue midline, no evidence of atrophy or fibrillations. -? Motor: normal bulk, tone, and strength throughout. No pronator drift or satelliting. Upper and lower extremities equal bilaterally. -?Detailed strength exam as performed by the nurse/QIAN and witnessed by the physician: R L SA 4 EE 4 EF 4 WE WF Strategy Specialist 4 HF KE 4 1 KF 4+ 1 DF 4 2 PF 4 2 -? Tone:rigidity and spasticity on the L arm, mild rigidity in the L leg, less than the L arm -? Sensation- Intact to light touch bilaterally -? Coordination: No dysmetria on [id number] in the RUE, unable to perform in the b/l LE d/t weakness -? Gait- wheelchair bound at baseline Medical Records Data Medical records narrative: 2016 EEG: IMPRESSION: There is beta range activity noted, which is likely medication effect such as benzodiazepines. This does not appear to be in epileptiform abnormalities. EKG appears to be paced. Lab / Micro Data 06/01/23 05:30 06/01/23 05:30 Labs: Laboratory Results - last 24 hr 05/31/23 10:19: WBC 10.8, RBC 4.37, Hgb 13.4, Hct 43.0, MCV 98.4, MCH 30.7, MCHC 31.2 L, RDW Std Deviation 47.9 H, RDW Coeff of Marilin 13.2, Plt Count 299, MPV 10.5, Immature Gran % (Auto) 0.700, Neut % (Auto) 55.6, Lymph % (Auto) 29.2, [place] % (Auto) 13.0 H, Eos % (Auto) 1.2, Baso % (Auto) 0.3, Absolute Neuts (auto) 6.0, Absolute Lymphs (auto) 3.14, Nucleated RBC % 0, Sodium 145, Potassium 3.9, Chloride 108 H, Carbon Dioxide 22.0, Anion Gap 15, BUN 21 H, Creatinine 1.21 H, Estim Creat Clear Calc 34.16, Est GFR (MDRD) Af Amer 56 L, Est GFR (MDRD) Non-Af 46 L, BUN/Creatinine Ratio 17.4, Glucose 142 H, Calcium 10.1, Total Bilirubin 0.70, AST 25, ALT 13, Alkaline Phosphatase 114, Total Protein 7.0, Albumin 3.5, Globulin 3.5, Albumin/Globulin Ratio 1.0 05/31/23 10:55: Urine Color Red, Urine Clarity Turbid, Urine pH 5.0, Ur Specific [place] 1.025, Urine Protein 100 H, Urine Glucose (UA) Normal, Urine Ketones 15 H, Urine Occult Blood 250 H, Urine Nitrite Negative, Urine Bilirubin Negative, Urine Urobilinogen Normal, Ur Leukocyte Esterase 500 H, Urine RBC > 100 SEEN, Urine WBC 10-25 SEEN, Ur Squamous Epith Cells 0 SEEN, Urine Bacteria 1+, Urine Mucus 0 SEEN 06/01/23 05:30: WBC 6.7, RBC 3.85 L, Hgb 11.3 L, Hct 36.5 L, MCV 94.8, MCH 29.4, MCHC 31.0 L, RDW Std Deviation 46.0 H, RDW Coeff of Marilin 13.2, Plt Count 207, MPV 11.1, Immature Gran % (Auto) 0.400, Neut % (Auto) 74.4 H, Lymph % (Auto) 14.3 L, [place] % (Auto) 10.0, Eos % (Auto) 0.6, Baso % (Auto) 0.3, Absolute Neuts (auto) 5.0, Absolute Lymphs (auto) 0.96, Nucleated RBC % 0, Sodium 141, Potassium 2.8 L, Chloride 107, Carbon Dioxide 30.0, Anion Gap 4 L, BUN 14, Creatinine 0.67, Estim Creat Clear Calc 41.33, Est GFR (MDRD) Af Amer 110, Est GFR (MDRD) Non-Af 91, BUN/Creatinine Ratio 20.9 H, Glucose 83, Calcium 8.8, Magnesium 2.2, Total Bilirubin 0.50, AST 26, ALT 13, Alkaline Phosphatase 90, Total Protein 5.8 L, Albumin 2.7 L, Globulin 3.1, Albumin/Globulin Ratio 0.9, TSH 0.55 Micro: Microbiology 05/31/23 10:55 Urine, Catheterized Urine Culture - Preliminary Culture exhibits no growth. Imagaing Radiology Impression Abdomen/Pelvis CT 05/31/23 10:22 IMPRESSION: Multiple small gallstones with mild dilatation of the gallbladder lumen. 1.3 mm calculus in the right renal pelvis causing mild degree of right hydronephrosis. Electronically Signed: Nabil Sloan MD at 12:24 EST , Brain CT 05/31/23 10:22 IMPRESSION: Chronic involutional changes of the brain. Stable bilateral emphysematous simulation more prominent on the right side. Electronically Signed: Nabil Sloan MD at 12:18 EST , Chest X-Ray 05/31/23 11:24 IMPRESSION: No acute abnormality is seen. Electronically Signed: Nabil Sloan MD at 12:19 EST , Active Medications Active Medications Active Medications: Current Medications Generic Name Dose Route Start Last Admin Trade Name Freq PRN Reason Stop Dose Admin Acetaminophen 650 mg 05/31/23 16:17 06/01/23 00:44 Acetaminophen 325 Mg Tablet PO 650 mg Q6H PRN PRN Administration Pain 1-10 Or Fever >100.7 Albuterol Sulfate 2.5 mg 05/31/23 16:17 Albuterol 2.5 Mg/3 Ml Vial.Neb. INHALATION Q2H PRN PRN Shortness of Breath/Wheezing Apixaban 5 mg 05/31/23 22:00 06/01/23 08:55 Apixaban 5 Mg Tablet PO 5 mg BID NICOLASA Administration Aspirin 81 mg 06/01/23 08:00 06/01/23 08:40 Aspirin 81 Mg Tab.Chew PO 81 mg DAILY@0800 NICOLASA Administration Atorvastatin Calcium 80 mg 05/31/23 22:00 05/31/23 21:02 Atorvastatin Calcium 80 Mg Tablet PO 80 mg QHS NICOLASA Administration Calamine/Phenol 1 applic 05/31/23 22:00 06/01/23 08:54 Menthol/Lanolin/Calamine/Znox 113 Gm Tube TOPICAL 1 applic BID [facility] Administration Protocol Diltiazem HCl 180 mg 06/01/23 10:00 06/01/23 08:57 Diltiazem Cd 180 Mg Capsule PO 180 mg DAILY [facility] Administration Protocol Ceftriaxone Sodium 1 gm in 50 mls @ 100 mls/hr 06/01/23 10:00 Rocephin IV Q24 NICOLASA Sodium Chloride 250 mls @ 15 mls/hr 05/31/23 16:48 IV .[id number] PRN Additional IVPB Infusion Sodium Chloride 250 mls @ 15 mls/hr 05/31/23 16:48 IV .[id number] PRN Saline Flush Potassium Chloride 10 meq in 100 mls @ 100 mls/hr 06/01/23 08:30 06/01/23 08:49 IV BOLUS 06/01/23 12:29 80 mls/hr Q1H NICOLASA Administration Levetiracetam 1,000 mg 05/31/23 22:00 06/01/23 08:53 Levetiracetam 1,000 Mg Tablet PO 1,000 mg BID NICOLASA Administration Melatonin 3 mg 05/31/23 16:17 Melatonin 3 Mg Tablet PO QHS PRN PRN INSOMNIA Nutritional Formula (Lactose Free) 120 ml 05/31/23 18:00 06/01/23 08:54 Ensure Plus High Protein 120 Ml Liquid PO 120 ml 4X/DAY [facility] Administration Nystatin 1 applic 05/31/23 22:00 06/01/23 08:54 Nystatin Powder 15gm Bottle TOPICAL 1 applic BID [facility] Administration Protocol Ondansetron HCl 4 mg 05/31/23 16:17 Ondansetron 4 Mg/2 Ml Vial IV Q8H PRN PRN NAUSEA/VOMITING Oxycodone HCl 2.5 mg 05/31/23 16:17 06/01/23 06:29 Oxycodone 5 Mg Tablet PO 2.5 mg Q4H PRN PRN Administration Pain Score 4-10 Psyllium Hydrophilic Mucilloid 1 packet 05/31/23 22:00 06/01/23 03:43 Psyllium 1 Packet PO Not Given TID [facility] Senna/Docusate Sodium 2 tablet 05/31/23 16:17 Senna/Docusate Sodium 1 Tablet PO BID PRN PRN Constipation Sodium Chloride 10 - 40 ml 05/31/23 16:48 0.9% Saline Lock 10 Ml Syringe IV UD PRN SALINE FLUSH
--- NOTE | 2023-06-01 10:28 | PCM.PN.BLA ---
Progress Note Teleneurology Addendum: Followup with Dr. Mata or any neurologist in 1 month for continued monitoring and management of epilepsy. No further recs, will sign off. Please call us back if patient has additional seizures.
[2023-06-01] MEDS: Potassium Chloride 10mEq/100mL 10 MEQ/100 ML IV.SOLN. 50 MEQ IV BOLUS ×3 (10:29→15:00)
--- NOTE | 2023-06-01 12:19 | CASEMGMT ---
MIKE TROTTER DC Planning Assessment: Face to Face with patient for initial transition planning/care coordination assessment. MIKE TROTTER introduced self and role at [facility], pt sitting up in bed with daughter at bedside. Pt alert, answering questions appropriately. Pt voices understanding of MIKE TROTTER role and is agreeable to participating in assessment.? Care providers, pharmacy,?and demographics verified. ? Admitting dx: Seizures, UTI PCP: Radha Specialists: none Preferred Pharmacy: [facility] Insurance: [facility] A/B, [facility] Prescription Benefit:?yes LNOK: daughter Amelia Living Arrangements: pt lives in a single story home with a ramp entrance. Pt is dependent on daughter and SG for assistance with ADLs and IADLs. Pt states she is nonambulatory, sponge bathes only, and uses a BSC. Transportation: Pt uses [facility] for w/c transportation when needed DME: w/c, hospital bed, BSC SNF: denies HHC: denies Acute rehab: states did receive s/p CVA in [place] ? Pt's goal/plan: Return home with support of daughter and SG. Denies any discharge needs at this time. Pt's daughter also denies any needs. Pt states she does not have transportation home d/t [facility] not being available on the weekend. Agreeable to calling [facility] for w/c transport upon discharge. MILIAN form explained to pt and her daughter. Pt deferred to her daughter to sign form. Pt's daughter signed form, original placed in chart and copy provided to pt/daughter. Pt and daughter deny any needs at this time. Michelle Kelsey, RN AC
[2023-06-01] MEDS: Ceftriaxone 1 GM/50 ML BAG IV (13:55)
[2023-06-01] MEDS: Psyllium 1 PACKET PO ×2 (13:57→20:27)
--- NOTE | 2023-06-01 14:53 | PCM.PROGNOTE ---
Subjective Subjective Patient seen and examined. She was admitted with a complaint of seizures. She has been managed for breakthrough seizures. Her daughter and son-in-law were by her bedside today. She had no active complaints. She denies any fever, chills, palpitations, dizziness, nausea or vomiting or any other symptoms. Review of systems otherwise negative. Neurologist on board. Objective Data Objective Data Vital Signs: Vital Signs Temp Pulse Resp BP Pulse Ox O2 Del Method O2 Flow Rate 97.8 F 66 18 144/85 H 97 Room Air 2 06/01/23 09:58 06/01/23 09:58 06/01/23 09:58 06/01/23 09:58 06/01/23 09:58 06/01/23 09:58 05/31/23 21:50 Oxygen Flow Rate (L/min) 2 Oxygen Delivery Method Room Air Weight: 132 lb 0.91 oz Body Mass Index (BMI) 22.6 Intake & Output: Intake and Output for Last 24 Hours 05/30/23 05/31/23 06/01/23 23:59 23:59 23:59 Intake Total 1260 / 1260 198.33 / 198.33 Output Total 600 / 1000 550 / 550 Balance 660 / 260 -351.67 / -351.67 Lab / Micro Data 06/01/23 05:30 06/01/23 05:30 Labs: Laboratory Results - last 24 hr 06/01/23 05:30: WBC 6.7, RBC 3.85 L, Hgb 11.3 L, Hct 36.5 L, MCV 94.8, MCH 29.4, MCHC 31.0 L, RDW Std Deviation 46.0 H, RDW Coeff of Marilin 13.2, Plt Count 207, MPV 11.1, Immature Gran % (Auto) 0.400, Neut % (Auto) 74.4 H, Lymph % (Auto) 14.3 L, [place] % (Auto) 10.0, Eos % (Auto) 0.6, Baso % (Auto) 0.3, Absolute Neuts (auto) 5.0, Absolute Lymphs (auto) 0.96, Nucleated RBC % 0, Sodium 141, Potassium 2.8 L, Chloride 107, Carbon Dioxide 30.0, Anion Gap 4 L, BUN 14, Creatinine 0.67, Estim Creat Clear Calc 41.33, Est GFR (MDRD) Af Amer 110, Est GFR (MDRD) Non-Af 91, BUN/Creatinine Ratio 20.9 H, Glucose 83, Calcium 8.8, Magnesium 2.2, Total Bilirubin 0.50, AST 26, ALT 13, Alkaline Phosphatase 90, Total Protein 5.8 L, Albumin 2.7 L, Globulin 3.1, Albumin/Globulin Ratio 0.9, TSH 0.55 Micro: Microbiology 05/31/23 10:55 Urine, Catheterized Urine Culture - Preliminary Culture exhibits no growth. Physical Exam Const alert, oriented x3 and no apparent distress General Appearance: cooperative HEENT normocephalic and head/scalp atraumatic Mouth: dry mucous membranes Eyes PERRL and EOMs intact bilaterally Lymph Lymphatic: no lymphadenopathy noted and no lymphedema noted Resp normal respiratory effort, normal air movement and clear to auscultation bilaterally Cardio regular rate, regular rhythm, S1 normal heart sound, S2 normal heart sound and no murmurs GI normal to inspection, nondistended, normoactive bowel sounds, soft to palpation, non-tender and non-distended Extremity normal capillary refill, no clubbing, cyanosis or edema and no calf tenderness General Extremity: no tenderness to palpation of joints or extremities Skin General Skin Exam: no breakdown Neuro CN's II-XII intact bilaterally, no focal motor deficits, no sensory deficits noted and deep tendon reflexes 2+ bilaterally Motor Exam: strength 5/5 throughout and general weakness Psych thought process normal and cooperative Appearance: appropriate Assessment & Plan Assessment/Plan (1) Epileptic seizure: PLAN: Plan #Seizure disorder with breakthrough seizure has known history of seizure neurology on board Keppra increased to 1000mg bid; per neurology, to keep on keppra 1000mg bid till Saturday morning, then to resume 500mg bid on Saturday evenig, with CT of the brain showed no acute intracranial pathology. seizure precautions. #UTI UA consistent with UTI CT of the abdomen 1.3mm calculus in renal pelvis. on IV rocephin #History of afib on eliquis and cardizem #History of CVA: on aspirin and statin DVT prophylaxis; on eliquis Total time spent on evaluation and management of patient, reviewing chart and specialist notes, discussion with specialists, discussing plan with patient and her family, discussion with nursing and ancillary staff as well as documentation: 40 mins Charges/Coding Visit Charges Inpatient E&M: 77913 Subs Hosp L2
[2023-06-01 18:36] LABS: Anion Gap 4 (5-15); BUN 14 mg/dL (7-18); BUN/Creat Ratio 17.3 RATIO (10-20); Calcium,Total 8.7 mg/dL (8.5-10.1); Chloride 106 mmol/L (98-107); Creatinine, Serum 0.81 mg/dL (0.55-1.02); EST Glomerular Filtration Rate 73 mL/min (>60); Est Glom Filt Rate - Afr Amer 88 mL/min (>60); Estimated Creatinine Clearance 51.02 ml/min; Glucose 106 mg/dL (74-106); Potassium 3.8 mmol/L (3.5-5.1); Sodium Level 140 mmol/L (136-145)
[2023-06-01] MEDS: Atorvastatin Calcium 80 MG Tablet PO (20:28)
[2023-06-02 04:00] VITALS: BP 148/65; PULSE 64; RESP 18; TEMP 36.6; O2SAT 96
[2023-06-02 05:50] LABS: Absolute Neutrophil Count 2.9 X10^3/uL (2.0-7.7); Basophil# 0.03 X10^3/uL; Basophil% 0.7 % (0-1); Eosinophil# 0.11 X10^3/uL; Eosinophils% 2.4 % (0-5); Hematocrit 35.4 % (37-47); Lymphocyte % 21.8 % (19-41); Mean Corp Hgb Conc 31.1 g/dL (32-36); Mean Corpuscular Hgb 29.5 pg (27.0-32.0); Mean Corpuscular Volume 94.9 fL (81-99); Mean Platelet Vol. 10.7 fl (6.2-12.0); Monocyte# 0.51 X10^3/uL; Monocyte% 11.1 % (0-10); NRBC Flagged by Analyzer 0 % (0-5); Neutrophil # 2.91 X10^3/uL (2.7-7.7); Neutrophil % 63.6 % (47-70); Platelet Count 207 K/mm3 (150-450); RBC Distribution Width CV 13.2 % (11.6-14.6); RBC Distribution Width SD 45.9 fl (35.1-43.9); Red Blood Count 3.73 M/mm3 (4.2-5.4); White Blood Count 4.6 K/mm3 (4.4-11.0)
[2023-06-02 06:15] LABS: Anion Gap 4 (5-15); BUN 14 mg/dL (7-18); BUN/Creat Ratio 20.4 RATIO (10-20); Calcium,Total 8.5 mg/dL (8.5-10.1); Chloride 111 mmol/L (98-107); Creatinine, Serum 0.69 mg/dL (0.55-1.02); EST Glomerular Filtration Rate 88 mL/min (>60); Est Glom Filt Rate - Afr Amer 107 mL/min (>60); Estimated Creatinine Clearance 41.33 ml/min; Glucose 92 mg/dL (74-106); Potassium 4.2 mmol/L (3.5-5.1); Sodium Level 143 mmol/L (136-145)
--- NOTE | 2023-06-02 09:56 | DCINST_ITS ---
Discharge Instructions Diet Discharge Diet: No restrictions Activity Discharge Activity: Return to Normal Activity Weight Bearing Status: Full weight bearing Follow Up Care Test Results: Test results from this visit will be discussed in further detail at your follow- up appointment, if applicable. Discharge Plan Admission Admit Date/Time: 05/31/23 15:03 Primary Reason for Your Visit: breakthrough seizure Attending Provider: Robles Mcdonough Primary Care Provider: Nelia Quinonez Consulting Providers: David Correa; Len Brown; Melina Gordon; Ivette Saba; Brandi Marie; Lui Phan; Adrienne Domingo; Manuelito Self; Flo Goff; Chiara Lawrence; Marcos Butt; Marielena Dhaliwal; Charlene Diaz; Jessica Vargas; Dylan Mazariegos; Joseph Hernandez; Bakari Barber; Shahla Bethea; Leti Bear; Breonna Tan; Radha Keene Instructions Additional Instructions / Restrictions: Take 17 grams of Miralax or generic Miralax once or twice daily for constipation Discharge Orders/Prescriptions Prescriptions: New nystatin [Nyamyc] 100,000 unit/gram Powder 1 applic topical BID Qty: 0 0RF Protocol: *Topical Application Instructions APPLICATION INSTRUCTIONS: to groin levetiracetam [Keppra] 750 mg tablet 750 mg PO BID Qty: 60 1RF cephalexin 500 mg capsule 500 mg PO TID Qty: 12 0RF Rx Instructions: start on 06/03/23 Continued valsartan 160 mg tablet 160 mg PO DAILY Qty: 90 3RF atorvastatin 80 mg tablet 80 mg PO QHS Qty: 90 3RF Eliquis 5 mg tablet 5 mg PO BID Qty: 180 3RF albuterol sulfate [Ventolin HFA] 90 mcg/actuation HFA aerosol inhaler 2 puff INHALATION Q4H PRN (Reason: shortness of breath or wheezing) prochlorperazine maleate [Compazine] 10 mg tablet 10 mg PO Q6H PRN tramadol 50 mg tablet 50 mg PO BID PRN (Reason: pain) Ocuvite Adult 50 Plus 250-5-1 mg capsule 1 cap PO DAILY aspirin 81 MG tablet,chewable 81 mg PO DAILY@0800 Patient Comments: HEART HEALTH/ PREVENTION baclofen 10 MG tablet 5 mg PO QHS Patient Comments: MUSCLE RELAXER polyethylene glycol 3350 238 GM powder 17 gm PO DAILY carboxymethylcellulose-glycern 15 ML drops 2 drp EACH EYE DAILY PRN PRN (Reason: Dry Eye) sfzorbbb-wxyp-LO-calcium-mins 1 EACH tablet 1 tab PO DAILY diltiazem HCl 180 mg capsule,extended release 24hr 180 mg PO DAILY Qty: 30 12RF Discontinued levetiracetam 500 MG tablet 500 mg PO BID Qty: 60 0RF Rx Instructions: causes drowsiness, for seizures Referrals / Follow Up: Nelia Quinonez MD [Primary Care Provider] - Within 1 Month Mariusz Mata MD [Non-Staff -Ordering Privileges] - See Referral Note (call his office to schedule an appointment if you wish to see a neurologist in town) Disposition Disposition (needs filled in before D/C Order can be placed): Home, Self Care
[2023-06-02] MEDS: Menthol/Lanolin/Calamine/Znox 113 GM Tube 1 APPLIC TOPICAL (10:05)
[2023-06-02] MEDS: Aspirin 81 MG TAB.CHEW PO (10:05)
[2023-06-02] MEDS: dilTIAZem CD 180 MG Capsule PO (10:05)
[2023-06-02] MEDS: levETIRAcetam 1,000 MG Tablet 1000 MG PO (10:06)
[2023-06-02] MEDS: APIXABAN 5 MG TABLET PO (10:06)
[2023-06-02] MEDS: Ensure Plus High Protein 120 ML LIQUID PO (10:06)
[2023-06-02] MEDS: Nystatin Powder 15gm Bottle 1 APPLIC TOPICAL (10:06)
[2023-06-02] MEDS: Ceftriaxone 1 GM/50 ML BAG IV (10:08)
[2023-06-02 10:09] VITALS: BP 134/70; PULSE 64; RESP 18; TEMP 37; O2SAT 98
--- NOTE | 2023-06-02 10:09 | PCM.DC.SUM ---
Providers Date of Admission: 05/31/23 Date of Discharge: 06/02/23 Primary Care Physician: Dr. Nelia Quinonez MD Consultations 05/31/23 12:55 Tele [Consult: Tele-Neurology] Routine Consulting Provider: [facility] Reason for Consult: SEIZURE EMERGENT Consult: Yes MD Notified: Yes Date Notified: 05/31/23 Time Notified: 12:55 Method of Notification: ED Physician Initiated Nursing Unit Staff Notify [facility] of Tele-Neurology Consult: Yes 05/31/23 16:17 Consult: Tele-Neurology Routine Consulting Provider: [facility] Reason for Consult: recurrent seizures EMERGENT Consult: No MD Notified: Yes Date Notified: 05/31/23 Time Notified: 16:35 Method of Notification: Answering Service Comments:: Was called by ED provider, ?will round on floor Nursing Unit Staff Notify [facility] of Tele-Neurology Consult: Yes Reason For Visit: RECURRENT SEIZURE Diagnosis Discharge Diagnosis (1) Epileptic seizure: Status: Acute Code(s): G40.909 - Epilepsy, unspecified, not intractable, without status epilepticus Plan 1. Chronic seizure disorder with breakthrough seizure #2 acute cystitis-organism not identified #3 paroxysmal A-fib #4 cerebrovascular disease with left hemiplegia Medications at Discharge Home Medications aspirin 81 mg chewable tablet 81 mg PO DAILY@0800 04/23/15 baclofen 10 mg tablet 5 mg PO QHS 06/03/15 carboxymethylcellulose 0.5 %-glycerin 0.9 % eye drops 2 drp EACH EYE DAILY PRN PRN Dry Eye 12/25/18 multivitamin-iron 9 mg-folic acid 400 mcg-calcium and minerals tablet 1 tab PO DAILY supplement 12/25/18 polyethylene glycol 3350 17 gram/dose oral powder 17 gm PO DAILY constipation 12/25/18 albuterol sulfate 90 mcg/actuation aerosol inhaler (Ventolin HFA) 2 puff inhalation Q4H PRN shortness of breath or wheezing 05/26/19 apixaban 5 mg tablet (Eliquis) 5 mg PO BID #180 tabs 05/26/19 atorvastatin 80 mg tablet 80 mg PO QHS #90 tabs 05/26/19 prochlorperazine maleate 10 mg tablet (Compazine) 10 mg PO Q6H PRN 05/26/19 tramadol 50 mg tablet 50 mg PO BID PRN pain 05/26/19 valsartan 160 mg tablet 160 mg PO DAILY #90 tabs 05/26/19 vit C,E,zinc,copper-fubdb8j 250 mg-lutein 5 mg-zeaxanthin 1 mg capsule (Ocuvite Adult 50 Plus) 1 cap PO DAILY 05/26/19 diltiazem HCl 180 mg capsule,extended release 24 hr 180 mg PO DAILY #30 caps 06/05/19 cephalexin 500 mg capsule 500 mg PO TID #12 caps 06/02/23 levetiracetam 750 mg tablet (Keppra) 750 mg PO BID #60 tabs 06/02/23 nystatin 100,000 unit/gram topical powder (Nyamyc) 1 applic topical BID #0 grams 06/02/23 Hospital Course Operations None Procedures None Summary of Care Provided Minutes Spent on Discharge: 31 Hospital Course: This 77-year-old white female was seen in the emergency room at [facility] following an unresponsive episode at home, patient has chronic seizure disorder, her family stated that she was trying to have a bowel movement and began to have a seizure. Patient had a witnessed seizure in the emergency room, she was given a milligram of Ativan, labs showed a normal white blood cell count and normal hemoglobin, patient was also given IV Keppra. Urinalysis indicated a possible urinary tract infection, patient was given IV Rocephin. Teleneurology was contacted and they did not feel patient needed an EEG. Patient was placed in observation status on MedSurg 3, her Keppra was increased to 1000 mg twice daily orally, she did not have any repeat seizure episodes. Urine culture did not grow out any organisms, I elected to treat her for an acute cystitis due to the appearance of the urinalysis. On 06/02/2023, patient was seen and examined: On examination she appeared in good health and spirits, she does not appear to be in any distress. Vital signs as documented. Skin warm and dry and without overt rashes. Neck without JVD, thyroid appears normal, trachea is midline, neck is supple. Lungs clear, normal air movement was noted. Heart exam notable for regular rhythm, normal sounds and absence of murmurs, rubs or gallops. Abdomen unremarkable and without evidence of organomegaly, masses, or abdominal aortic enlargement, bowel sounds are present in all 4 quadrants, no abdominal tenderness was noted. Extremities nonedematous, no cyanosis was noted, no clubbing was noted. Neuro: Cranial nerves II through XII are grossly intact, patient has left hemiaplasia Psych: Patient is alert and oriented x3, she does not appear anxious or depressed, she does not appear agitated. Patient was discharged home on 06/02/2023 in stable condition, after talking with the patient and her daughter, I felt it best that she increase her Keppra to 750 mg twice daily, I also recommended that she see a neurologist for follow-up here at the hospital. Weight / BMI Weight Weight: 60 kg Body Mass Index (BMI) 22.6 ABG / Lab / Microbiology Data 06/02/23 05:06 06/02/23 05:06 Laboratory: Laboratory Results - last 24 hr 06/01/23 17:44: Sodium 140, Potassium 3.8, Chloride 106, Carbon Dioxide 30.0, Anion Gap 4 L, BUN 14, Creatinine 0.81, Estim Creat Clear Calc 51.02, Est GFR (MDRD) Af Amer 88, Est GFR (MDRD) Non-Af 73, BUN/Creatinine Ratio 17.3, Glucose 106, Calcium 8.7 06/02/23 05:06: WBC 4.6, RBC 3.73 L, Hgb 11.0 L, Hct 35.4 L, MCV 94.9, MCH 29.5, MCHC 31.1 L, RDW Std Deviation 45.9 H, RDW Coeff of Marilin 13.2, Plt Count 207, MPV 10.7, Immature Gran % (Auto) 0.400, Neut % (Auto) 63.6, Lymph % (Auto) 21.8, [place] % (Auto) 11.1 H, Eos % (Auto) 2.4, Baso % (Auto) 0.7, Absolute Neuts (auto) 2.9, Absolute Lymphs (auto) 1.00, Nucleated RBC % 0, Sodium 143, Potassium 4.2, Chloride 111 H, Carbon Dioxide 28.0, Anion Gap 4 L, BUN 14, Creatinine 0.69, Estim Creat Clear Calc 41.33, Est GFR (MDRD) Af Amer 107, Est GFR (MDRD) Non-Af 88, BUN/Creatinine Ratio 20.4 H, Glucose 92, Calcium 8.5 Microbiology: Microbiology 05/31/23 10:55 Urine, Catheterized Urine Culture - Final Culture exhibits no growth. D/C Instructions Discharge Diet: No restrictions Weight Bearing Status: Full weight bearing Meaningful Use Info Meaningful Use Diagnoses (Choose all that apply): None applicable Discharge Plan Admission Admit Date/Time: 05/31/23 15:03 Primary Reason for Your Visit: breakthrough seizure Attending Provider: Robles Mcdonough Primary Care Provider: Nelia Quinonez Consulting Providers: David Correa; Len Brown; Melina Gordon; Ivette Saba; Brandi Marie; Lui Phan; Adrienne Domingo; Manuelito Self; Flo Goff; Chiara Lawrence; Marcos Butt; Marielena Dhaliwal; Charlene Diaz; Jessica Vargas; Dylan Mazariegos; Joseph Hernandez; Bakari Barber; Shahla Bethea; Leti Bear; Breonna Tan; Radha Keene Instructions Additional Instructions / Restrictions: Take 17 grams of Miralax or generic Miralax once or twice daily for constipation Discharge Orders/Prescriptions Prescriptions: New nystatin [Nyamyc] 100,000 unit/gram Powder 1 applic topical BID Qty: 0 0RF Protocol: *Topical Application Instructions APPLICATION INSTRUCTIONS: to groin levetiracetam [Keppra] 750 mg tablet 750 mg PO BID Qty: 60 1RF cephalexin 500 mg capsule 500 mg PO TID Qty: 12 0RF Rx Instructions: start on 06/03/23 Continued valsartan 160 mg tablet 160 mg PO DAILY Qty: 90 3RF atorvastatin 80 mg tablet 80 mg PO QHS Qty: 90 3RF Eliquis 5 mg tablet 5 mg PO BID Qty: 180 3RF albuterol sulfate [Ventolin HFA] 90 mcg/actuation HFA aerosol inhaler 2 puff INHALATION Q4H PRN (Reason: shortness of breath or wheezing) prochlorperazine maleate [Compazine] 10 mg tablet 10 mg PO Q6H PRN tramadol 50 mg tablet 50 mg PO BID PRN (Reason: pain) Ocuvite Adult 50 Plus 250-5-1 mg capsule 1 cap PO DAILY aspirin 81 MG tablet,chewable 81 mg PO DAILY@0800 Patient Comments: HEART HEALTH/ PREVENTION baclofen 10 MG tablet 5 mg PO QHS Patient Comments: MUSCLE RELAXER polyethylene glycol 3350 238 GM powder 17 gm PO DAILY carboxymethylcellulose-glycern 15 ML drops 2 drp EACH EYE DAILY PRN PRN (Reason: Dry Eye) atuvakym-ekfc-JV-calcium-mins 1 EACH tablet 1 tab PO DAILY diltiazem HCl 180 mg capsule,extended release 24hr 180 mg PO DAILY Qty: 30 12RF Discontinued levetiracetam 500 MG tablet 500 mg PO BID Qty: 60 0RF Rx Instructions: causes drowsiness, for seizures Referrals / Follow Up: Nelia Quinonez MD [Primary Care Provider] - Within 1 Month Mariusz Mata MD [Non-Staff -Ordering Privileges] - See Referral Note (call his office to schedule an appointment if you wish to see a neurologist in town) Disposition Disposition (needs filled in before D/C Order can be placed): Home, Self Care Charges/Coding Visit Charges Inpatient E&M: 43783 Disch Hosp >30min
--- NOTE | 2023-06-02 12:45 | PN.NEURO_ITS ---
Assessment and Plan: Neuro Assessment/Plan PARVEEN DICKSON is a 77 F with a past medical history of , being evaluated by Teleneurology for Diagnosis: Plan: Transfer to [facility] for the following reasons: I personally attended this patient and spent a total time of minutes evaluating this patient including clinical assessment, review of chart, medical history imaging, and determining appropriate treatment and workup. Subject: Neurology Subjective PARVEEN DICKSON is a 77 year old F, who we are seeing in consultation today for advice on the management of and related patient care. NIHSS NIHSS 1a. Level of Consciousness: Alert; keenly responsive Total: 0 EEG Results Procedure Details EEG Procedure Details: PARVEEN DICKSON is a 77 year old F with a past medical history of , who presents for evaluation of Electroencephalogram on DATE at TIME Objective Data Objective Data Vital Signs: Vital Signs Temp Pulse Resp BP Pulse Ox O2 Del Method O2 Flow Rate 98.6 F 64 18 134/70 H 98 Room Air 2 06/02/23 10:09 06/02/23 10:09 06/02/23 10:09 06/02/23 10:09 06/02/23 10:09 06/02/23 10:54 05/31/23 21:50 Oxygen Flow Rate (L/min) 2 Oxygen Delivery Method Room Air Weight: 60 kg Body Mass Index (BMI) 22.6 Intake & Output: Intake and Output for Last 24 Hours 05/31/23 06/01/23 06/02/23 23:59 23:59 23:59 Intake Total 1260 / 1260 1298.33 / 1298.33 50 / 50 Output Total 600 / 1000 950 / 950 550 / 550 Balance 660 / 260 348.33 / 348.33 -500 / -500 Lab / Micro Data 06/02/23 05:06 06/02/23 05:06 Labs: Laboratory Results - last 24 hr 06/01/23 17:44: Sodium 140, Potassium 3.8, Chloride 106, Carbon Dioxide 30.0, Anion Gap 4 L, BUN 14, Creatinine 0.81, Estim Creat Clear Calc 51.02, Est GFR (MDRD) Af Amer 88, Est GFR (MDRD) Non-Af 73, BUN/Creatinine Ratio 17.3, Glucose 106, Calcium 8.7 06/02/23 05:06: WBC 4.6, RBC 3.73 L, Hgb 11.0 L, Hct 35.4 L, MCV 94.9, MCH 29.5, MCHC 31.1 L, RDW Std Deviation 45.9 H, RDW Coeff of Marilin 13.2, Plt Count 207, MPV 10.7, Immature Gran % (Auto) 0.400, Neut % (Auto) 63.6, Lymph % (Auto) 21.8, [place] % (Auto) 11.1 H, Eos % (Auto) 2.4, Baso % (Auto) 0.7, Absolute Neuts (auto) 2.9, Absolute Lymphs (auto) 1.00, Nucleated RBC % 0, Sodium 143, Potassium 4.2, Chloride 111 H, Carbon Dioxide 28.0, Anion Gap 4 L, BUN 14, Creatinine 0.69, Estim Creat Clear Calc 41.33, Est GFR (MDRD) Af Amer 107, Est GFR (MDRD) Non-Af 88, BUN/Creatinine Ratio 20.4 H, Glucose 92, Calcium 8.5 Micro: Microbiology 05/31/23 10:55 Urine, Catheterized Urine Culture - Final Culture exhibits no growth. Physical Exam Neuro Motor Exam: strength abnormal flexion, pronator drift Positive for pronator drift of RUE and movement abnormality noted
== END 2023-06-02 12:43 | disposition home or self-care (01) ==
LOC: ED 11:50 → MS3 15:45
PROVIDERS: Student in an Organized Health Care Education/Training Program; Admitting Provider Internal Medicine; Emergency Provider Emergency Medicine; PCP Internal Medicine; Visit Provider Internal Medicine
DX: I69.398 Other sequelae of cerebral infarction (principal); I69.354 Hemiplegia and hemiparesis following cerebral infarction affecting left non-dominant side; I48.0 Paroxysmal atrial fibrillation; G40.909 Epilepsy, unspecified, not intractable, without status epilepticus; E78.5 Hyperlipidemia, unspecified; Z79.82 Long term (current) use of aspirin; I10 Essential (primary) hypertension; K60.0 Acute anal fissure; Z95.0 Presence of cardiac pacemaker; N30.00 Acute cystitis without hematuria; Z79.01 Long term (current) use of anticoagulants; Z79.899 Other long term (current) drug therapy; N20.0 Calculus of kidney
CPT/HCPCS: 36415; 70450; 71045; 74177; 80048; 80053; 81001; 83735; 84443; 85025; 87086; 93005; 96365; 96366; 96367; 96375; 97802; 99221; 99285; J7030; J7040; Q9967; A4216; G0378

== ENCOUNTER 2024-08-05 13:34 | Inpatient (IN) | payer MEDICARE, MEDICAID, SELFPAY ==
[2024-08-05] VITALS (15 sets, daily range): BP systolic 142–206; BP diastolic 55–113; PULSE 68–107; RESP 12–27; TEMP 36.6–37.1; O2SAT 93–100; BMI 26.4
--- NOTE | 2024-08-05 14:07 | EX.ED.DYSGE1 ---
HPI History of Present Illness Chief Complaint: Seizure Informant: patient Onset/Context/Timing Onset: Today Context: Sudden Onset Timing: Intermittent Quality: shaking Location: Generalized Worsened by: Nothing Relieved by: Nothing Narrative Narrative: Patient presents with a possible seizure that occurred today. Patient has a history of seizure disorder. Patient is on Keppra. Patient has been compliant with her medications. Family states that the patient's eyes started rolling back and she started shaking. Family states that she called for another family member just prior to starting with the seizure. Patient states she was incontinent of urine during the seizure. Patient admits to a headache. Patient admits to some nausea but denies any vomiting. [facility] Medical History Acute anal fissure Acute constipation Epileptic seizure Atrial fibrillation Palpitations Sick sinus syndrome Bilateral breast cancer Cardiac pacemaker in situ Essential hypertension Hyperlipidemia Seizure disorder as sequela of cerebrovascular accident CVA (cerebral vascular accident) Bradycardia Home Medications ?Medication ?Instructions ?Recorded ?Last Taken ?Type aspirin 81 mg chewable tablet 81 mg PO DAILY 04/23/15 08/05/24 History baclofen 10 mg tablet 5 mg PO QHS 06/03/15 12/24/18 History carboxymethylcellulose 0.5 2 drp EACH EYE DAILY PRN PRN Dry 12/25/18 12/25/18 History %-glycerin 0.9 % eye drops Eye multivitamin-iron 9 mg-folic acid 1 tab PO DAILY supplement 12/25/18 08/05/24 History 400 mcg-calcium and minerals tablet polyethylene glycol 3350 17 17 gm PO DAILY constipation 12/25/18 08/05/24 History gram/dose oral powder apixaban 5 mg tablet (Eliquis) 5 mg PO BID #180 tabs 05/26/19 08/05/24 Rx prochlorperazine maleate 10 mg 10 mg PO Q6H PRN nausea and 05/26/19 Unknown History tablet (Compazine) vomiting valsartan 160 mg tablet 160 mg PO DAILY #90 tabs 05/26/19 08/04/24 Rx diltiazem HCl 180 mg 180 mg PO DAILY #30 caps 06/05/19 08/05/24 Rx capsule,extended release 24 hr levetiracetam 750 mg tablet 750 mg PO BID #60 tabs 06/02/23 08/05/24 Rx (Keppra) atorvastatin 40 mg tablet 40 mg PO DAILY 08/05/24 Unknown History nystatin 100,000 unit/gram topical 1 applic topical BID PRN rash 08/05/24 Unknown History powder (Nyamy) Allergy/AdvReac Type Severity Reaction Status Date / Time Sulfa (Sulfonamide Allergy Unknown Unknown Verified 08/05/24 13:39 Antibiotics) tetracycline Allergy Unknown Unknown Verified 08/05/24 13:39 naproxen AdvReac Swelling Verified 08/05/24 13:39 Family History Mother Heart disease Diabetes Hypertension Cancer breast Father Cancer Brother CVA (cerebral vascular accident) Surgical History S/P cardiac pacemaker procedure History of partial mastectomy of left breast Hx of total mastectomy of right breast History of section Social History household members: family housing: house current occupational status: retired Smoking Status: Never smoker alcohol intake: never substance use type: does not use caffeine: No ROS ROS ED Constitutional Constitutional ED: Denies chills or fever(s) Eyes Eyes: Denies blurry vision or change in vision ENT ENT ED: Denies rhinorrhea or sore throat Cardiovascular Cardiovascular: Denies chest pain or palpitations Respiratory/Chest Respiratory/Chest: Denies cough or dyspnea Gastrointestinal Gastrointestinal: Denies nausea or vomiting Genitourinary Genitourinary ED: Denies dysuria or hematuria Musculoskeletal Musculoskeletal: Denies back pain or neck pain Integumentary Denies abscess or rash Neurologic Neurologic: Reports headache(s); Denies weakness Allergic/Immunologic Allergic/Immunologic ED: Denies mouth swelling or urticaria EXAM Physical Exam Const Vital Signs: 08/05/24 13:35 08/05/24 14:34 08/05/24 15:00 Temperature 97.8 F Temperature Source Temporal Pulse Rate 98 77 80 Respiratory Rate 21 H 21 H 27 H Blood Pressure 150/98 H 173/72 H 150/113 H Blood Pressure Mean 115 105 121 Pulse Ox 99 98 Oxygen Delivery Method Room Air Room Air Oxygen Flow Rate (L/min) 08/05/24 15:15 08/05/24 16:00 08/05/24 17:00 Temperature Temperature Source Pulse Rate 69 70 68 Respiratory Rate 16 19 H 12 Blood Pressure 175/76 H 206/64 H Blood Pressure Mean 105 87 Pulse Ox Oxygen Delivery Method Oxygen Flow Rate (L/min) 08/05/24 18:12 08/05/24 18:15 08/05/24 19:00 Temperature Temperature Source Pulse Rate 95 89 97 Respiratory Rate 16 18 24 H Blood Pressure 171/75 H 142/55 H 158/69 H Blood Pressure Mean 107 84 98 Pulse Ox 100 100 99 Oxygen Delivery Method Non-Rebreather Non-Rebreather Non-Rebreather Oxygen Flow Rate (L/min) 15 15 08/05/24 20:00 08/05/24 21:00 Temperature Temperature Source Pulse Rate 107 H 101 H Respiratory Rate 18 24 H Blood Pressure 182/66 H 162/80 H Blood Pressure Mean 104 107 Pulse Ox 100 93 Oxygen Delivery Method Non-Rebreather Room Air Oxygen Flow Rate (L/min) 10 Positive well nourished and well developed General Appearance ED: well developed and NAD HEENT Reports dry mucous membranes Mouth ED: Yes dry mucous membranes Mouth: dry mucous membranes Neck supple and no JVD Resp normal respiratory effort and clear to auscultation bilaterally Cardio regular rate and regular rhythm GI non-tender and non-distended Palpation: soft Neuro oriented x3, CN's II-XII intact bilaterally and no sensory deficits noted Sensorium / Orientation: alert Motor Exam: strength 5/5 throughout MDM MDM MDM Narrative Medical decision making narrative: Differential diagnosis includes seizure disorder, breakthrough seizure, intracranial bleeding, electrolyte abnormality, and medication noncompliance. CT scan of the brain will be obtained to assess for intracranial bleeding and mass. CBC will be obtained to assess for leukocytosis and anemia. Basic metabolic profile will be obtained to assess for electrolyte abnormality and renal function. Urinalysis will be obtained to assess for urinary tract infection. PT with INR PTT will be obtained to assess for coagulopathy. Keppra level will be obtained to assess for medication compliance. Lab Data Attestation: I reviewed the patient's lab results. Lab results narrative: CBC was reviewed and was within normal limits. Basic metabolic profile was reviewed and was essentially within normal limits. PT with INR and PTT were reviewed. Pro time was 17.4 and INR is 1.4. PTT was normal at 30.8. Urinalysis was reviewed. Leukocyte esterase was 100. Occult blood was 250. There are 25-50 red blood cells and 5-10 white blood cells. There is 2+ bacteria. Labs: Laboratory Results - last 24 hr 08/05/24 08/05/24 13:51 15:50 WBC 7.9 RBC 4.74 Hgb 14.5 Hct 45.1 MCV 95.1 MCH 30.6 MCHC 32.2 RDW Std Deviation 51.9 H RDW Coeff of Marilin 14.6 Plt Count 238 MPV 11.6 Immature Gran % (Auto) 0.300 Neut % (Auto) 57.0 Lymph % (Auto) 31.6 [place] % (Auto) 9.3 Eos % (Auto) 1.3 Baso % (Auto) 0.5 Absolute Neuts (auto) 4.5 Absolute Lymphs (auto) 2.48 Nucleated RBC % 0 PT 17.4 H INR 1.4 APTT 30.8 Sodium 143 Potassium 3.6 Chloride 105 Carbon Dioxide 27.0 Anion Gap 11 BUN 19 H Creatinine 0.88 Estim Creat Clear Calc 51.37 Est GFR (MDRD) Af Amer 80 Est GFR (MDRD) Non-Af 66 BUN/Creatinine Ratio 21.6 H Glucose 117 H Calcium 9.7 Magnesium 2.1 Urine Color SEE COMMENT BELOW Urine Clarity Cloudy Urine pH 8.0 Ur Specific [place] 1.015 Urine Protein 30 H Urine Glucose (UA) Normal Urine Ketones Negative Urine Occult Blood 250 H Urine Nitrite Negative Urine Bilirubin Negative Urine Urobilinogen Normal Ur Leukocyte Esterase 100 H Urine RBC 25-50 SEEN Urine WBC 5-10 SEEN Ur Squamous Epith Cells 0-5 SEEN Urine Bacteria 2+ Urine Mucus 0 SEEN Radiography Diagnostic Testing: Clinical Impression(s) from Imaging Studies Brain CT 08/05/24 14:42 IMPRESSION: Stable examination. No acute abnormality is seen. Reading Location: [facility]1 CT scan of the brain was obtained. There is no acute intracranial abnormality. This was interpreted by the radiologist and was also independently reviewed by myself. Management Discussion w/another healthcare provider: Hospitalist Additional Tests and Interventions Additional Tests or Interventions: Urine culture was ordered. Treatment and Re-Evaluation :: Seizure precautions were maintained. Patient was given IV fluids. Patient was feeling better on reevaluation. Patient's blood pressure increased to 206/64. Patient was given a dose of hydralazine for this. Patient was instructed to follow-up with her primary care physician in 5 to 7 days. Patient was advised that her Keppra level will not come back tonight. Patient was instructed to follow-up with her primary care physician for the results of this. Patient was instructed to return if worse in any way. Patient and family understood and were agreeable with plan. All questions were answered. Before the patient was discharged, patient had a second seizure. This was a generalized tonic-clonic seizure. Patient is now complaining of a headache and nausea. Patient was given a dose of morphine and Zofran. I will discuss the case with the hospitalist for possible admission for observation. Hospitalist was in to evaluate the patient. Patient had no further seizure activity. Patient was given a dose of Ativan and Keppra. Patient was also given a dose of Rocephin. Patient will be admitted to the PCU. Family understood and was agreeable with the plan. All questions were answered. Discharge Plan Dx/Rx/DC Orders Clinical Impression: Breakthrough seizure, Hypertension, Urinary tract infection Disposition Disposition: Acute Care Hospital [facility] Discharge Date/Time: 08/05/24 22:33
[2024-08-05 14:40] LABS: Absolute Lymphocyte Count 2.48 X10^3/uL (0.83-4.51); Absolute Neutrophil Count 4.5 X10^3/uL (2.0-7.7); Basophil# 0.04 X10^3/uL; Basophil% 0.5 % (0-1); Eosinophils% 1.3 % (0-5); Hematocrit 45.1 % (37-47); Hemoglobin 14.5 g/dL (12.0-15.0); Lymphocyte # 2.48 X10^3/ul (0.83-4.51); Lymphocyte % 31.6 % (19-41); Mean Corp Hgb Conc 32.2 g/dL (32-36); Mean Corpuscular Hgb 30.6 pg (27.0-32.0); Mean Corpuscular Volume 95.1 fL (81-99); Mean Platelet Vol. 11.6 fl (6.2-12.0); Monocyte# 0.73 X10^3/uL; Monocyte% 9.3 % (0-10); NRBC Flagged by Analyzer 0 % (0-5); Neutrophil # 4.48 X10^3/uL (2.7-7.7); Platelet Count 238 K/mm3 (150-450); RBC Distribution Width CV 14.6 % (11.6-14.6); RBC Distribution Width SD 51.9 fl (35.1-43.9); Red Blood Count 4.74 M/mm3 (4.2-5.4); White Blood Count 7.9 K/mm3 (4.4-11.0)
[2024-08-05] MEDS: 0.9% Normal Saline (1000mL) 1,000 ML 1000 ML IV (14:40)
[2024-08-05] MEDS: Ondansetron 4 MG/2 ML Vial IV (14:41)
--- NOTE | 2024-08-05 14:42 | CT_ITS ---
EXAM: BRAIN/HEAD WITHOUT CONTRAST CLINICAL HISTORY: History of seizures. COMPARISON: Comparison is made with prior study dated May 31, 2023. TECHNIQUE: Multiple axial tomographic images were obtained without intravenous contrast administration. Sagittal and coronal reconstruction was obtained as well. FINDINGS: Once again, as evidence of encephalomalacia involving the right posterior parietal occipital lobes as well as the temporal lobes bilaterally in the medial aspect of the left occipital lobe. There has been no change since prior study. CT/Brain/Head without Contrast IMPRESSION: Stable examination. No acute abnormality is seen. Reading Location: [place] [id number]
[2024-08-05 14:47] LABS: International Normalized Ratio 1.4; Prothrombin Time (Protime)PT. 17.4 SECONDS (11.7-14.9)
[2024-08-05 14:53] LABS: Partial Thromboplast Time 30.8 Seconds (24.1-36.2)
[2024-08-05 14:56] LABS: Anion Gap 11 (5-15); BUN 19 mg/dL (7-18); BUN/Creat Ratio 21.6 RATIO (10-20); Calcium,Total 9.7 mg/dL (8.5-10.1); Chloride 105 mmol/L (98-107); Creatinine, Serum 0.88 mg/dL (0.55-1.02); EST Glomerular Filtration Rate 66 mL/min (>60); Est Glom Filt Rate - Afr Amer 80 mL/min (>60); Estimated Creatinine Clearance 51.37 ml/min; Glucose 117 mg/dL (74-106); Potassium 3.6 mmol/L (3.5-5.1); Sodium Level 143 mmol/L (136-145)
[2024-08-05 15:54] LABS: Mucous, Urine 0 SEEN /hpf (<or=2+)
[2024-08-05 16:23] LABS: Glucose, Dipstick Normal (Normal); Ketone-Dipstick Negative (Negative); Leukocyte Esterase-Dipstick 100 /ul (Negative); Nitrite-Dipstick Negative (Negative); Occult Blood-Urine 250 /ul (Negative); Protein-Dipstick 30 mg/dl (Negative); Specific Gravity, Urine 1.015 (1.002-1.030); Urine Bilirubin Dipstick Negative (Negative); Urine Clarity Cloudy (Clear); Urine Urobilinogen Normal (Normal)
[2024-08-05 16:27] LABS: Color, Urine SEE COMMENT BELOW (Yellow)
[2024-08-05 16:34] LABS: Bacteria 2+ /hpf (None Seen); Red Blood Cells-Urine 25-50 SEEN /hpf (0-5); Squamous Epithelial Cells - UA 0-5 SEEN /hpf (5-10); White Blood Cells 5-10 SEEN /hpf (0-5)
[2024-08-05] MEDS: hydrALAZINE 20 MG/ML Vial 10 MG IV (17:45)
--- NOTE | 2024-08-05 18:13 | ED.RN ---
pts family started yelling and pt was actively seizing when staff went into the room. pts mouth was suctioned and nrb was placed. estimated seizure activity lasted [address] bui to the room and pt is being monitored.
[2024-08-05] MEDS: Lorazepam 2 MG/ML WCH Syringe IV (19:28)
--- NOTE | 2024-08-05 19:31 | PCM.HP.STD ---
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 While in the ED patient was maintained on seizure precautions with IV fluids administered with Keppra level obtained for future assessment in case of regimen changes however unfortunately just prior to patient being discharged she had a second seizure noted to be a generalized tonic-clonic seizure. Family notes the last time she had a breakthrough seizure she had a UTI also. Workup in the ED included T97.8 Temporally, heart rate 98, BP 150/98, respiratory rate 21, 99% on room air eventually unfortunately with seizure activity just prior to attempted discharge with now most recent vital signs heart rate 89, BP 142/55, respiratory rate 18, 100% on a nonrebreather 15 L, CBC with WC 7.9, hemoglobin 14.5, platelet 238 without marked shift, unremarkable coags sides PT 17.4, BMP with BUN/creatinine 19/0.88, GFR 66, glucose 117, urinalysis with cloudy appearing urine, specific [place] 1.015, protein 30, occult blood 250, nitrite negative, leukocyte esterase 100 with urine RBCs 25-50 and urine WBCs 5-10 with 2+ urine bacteria, urine culture pending per ED, Keppra level pending per ED, CT of the brain with stable examination with encephalomalacia involving the right posterior parietal occipital lobes as well as the temporal lobes bilaterally medial aspect of the left occipital lobe with no change since prior study. In the ED patient administered Zofran 4 mg IV x 2, morphine 4 mg IV x 1, hydralazine 10 mg IV x 1, ativan 2 mg IV x 2, 1 L normal saline. Discussed current status with ED physician and requested she be loaded with Keppra 1,000 mg IV x 1. Discussed that if following load she has no further breakthrough seizures would be [facility] Medical History Acute anal fissure Acute constipation Epileptic seizure Atrial fibrillation Palpitations Sick sinus syndrome Bilateral breast cancer Cardiac pacemaker in situ Essential hypertension Hyperlipidemia Seizure disorder as sequela of cerebrovascular accident CVA (cerebral vascular accident) Bradycardia Home Medications ?Medication ?Instructions ?Recorded ?Last Taken ?Type aspirin 81 mg chewable tablet 81 mg PO DAILY 04/23/15 08/05/24 History baclofen 10 mg tablet 5 mg PO QHS 06/03/15 12/24/18 History carboxymethylcellulose 0.5 2 drp EACH EYE DAILY PRN PRN Dry 12/25/18 12/25/18 History %-glycerin 0.9 % eye drops Eye multivitamin-iron 9 mg-folic acid 1 tab PO DAILY supplement 12/25/18 08/05/24 History 400 mcg-calcium and minerals tablet polyethylene glycol 3350 17 17 gm PO DAILY constipation 12/25/18 08/05/24 History gram/dose oral powder apixaban 5 mg tablet (Eliquis) 5 mg PO BID #180 tabs 05/26/19 08/05/24 Rx prochlorperazine maleate 10 mg 10 mg PO Q6H PRN nausea and 05/26/19 Unknown History tablet (Compazine) vomiting valsartan 160 mg tablet 160 mg PO DAILY #90 tabs 05/26/19 08/04/24 Rx diltiazem HCl 180 mg 180 mg PO DAILY #30 caps 06/05/19 08/05/24 Rx capsule,extended release 24 hr levetiracetam 750 mg tablet 750 mg PO BID #60 tabs 06/02/23 08/05/24 Rx (Keppra) atorvastatin 40 mg tablet 40 mg PO DAILY 08/05/24 Unknown History nystatin 100,000 unit/gram topical 1 applic topical BID PRN rash 08/05/24 Unknown History powder (Nyamyc) Allergy/AdvReac Type Severity Reaction Status Date / Time Sulfa (Sulfonamide Allergy Unknown Unknown Verified 08/05/24 13:39 Antibiotics) tetracycline Allergy Unknown Unknown Verified 08/05/24 13:39 naproxen AdvReac Swelling Verified 08/05/24 13:39 Family History Mother Heart disease Diabetes Hypertension Cancer breast Father Cancer Brother CVA (cerebral vascular accident) Surgical History S/P cardiac pacemaker procedure History of partial mastectomy of left breast Hx of total mastectomy of right breast History of section Social History household members: family housing: house current occupational status: retired Smoking Status: Never smoker alcohol intake: never substance use type: does not use caffeine: No ROS Review of Systems ROS Unobtainable: due to encephalopathy Vital Signs Vital Signs Vital Signs: 08/05/24 13:35 08/05/24 14:34 08/05/24 15:00 Temperature 97.8 F Temperature Source Temporal Pulse Rate 98 77 80 Respiratory Rate 21 H 21 H 27 H Blood Pressure 150/98 H 173/72 H 150/113 H Blood Pressure Mean 115 105 121 Pulse Ox 99 98 Oxygen Delivery Method Room Air Room Air Oxygen Flow Rate (L/min) 08/05/24 15:15 08/05/24 16:00 08/05/24 17:00 Temperature Temperature Source Pulse Rate 69 70 68 Respiratory Rate 16 19 H 12 Blood Pressure 175/76 H 206/64 H Blood Pressure Mean 105 87 Pulse Ox Oxygen Delivery Method Oxygen Flow Rate (L/min) 08/05/24 18:12 08/05/24 18:15 Temperature Temperature Source Pulse Rate 95 89 Respiratory Rate 16 18 Blood Pressure 171/75 H 142/55 H Blood Pressure Mean 107 84 Pulse Ox 100 100 Oxygen Delivery Method Non-Rebreather Non-Rebreather Oxygen Flow Rate (L/min) 15 Weight Weight: 154 lb 1.65 oz Body Mass Index (BMI) 26.4 Physical Exam Narrative Physical Examination: General: Patient postictal and also received significant Ativan, lethargic, not able to answer any orientation questions, currently resting in the ED bed, family present, nonrebreather in place which was placed during seizure. Skin: Normal color, normal turgor, no icterus, no cyanosis except very staged ecchymoses, abrasion, bilateral lower extremity significant lichenification HEENT: AT/NC, extraocular movements difficult to assess given recent seizure and sedation, PERRLA but sluggish, chronic left eye vision deficits noted but unable to determine at this time given encephalopathy status post seizure from prior stroke, dry MM, no carotid bruits or JVD noted. Lungs: Mildly diminished, greater bases, nonrebreather in place following recent seizure but no evidence of any distress, no rales, ronchi or wheezing. Heart: Regular rate and rhythm; no gallop, rub audible. Abdomen: Soft, NTTP, ND, distant normal BS, no HSM. Extremities: No cyanosis, no clubbing, significant bilateral lower extremity chronic lymphedema with notable bilateral lichenification, known stroke history with left-sided complete hemiplegia. Neurological: Patient postictal and also received significant Ativan, lethargic, not able to answer any orientation questions, currently resting in the ED bed, family present, nonrebreather in place which was placed during seizure, cognitive function not baseline intact; pupils equally reactive to light and accommodation, difficult to assess cranial nerves given current sedation status post seizure with postictal phase, strength difficult to determine, status post previous CVA with left-sided hemiplegia. Psychiatric: Affect appears flat, lethargic status post recent seizure with postictal phase and Ativan administration, no acute evidence of depressive or anxiety feelings but again patient affect flat and lethargic. Results Lab / Micro Data 08/05/24 13:51 08/05/24 13:51 Labs: Laboratory Results - last 24 hr 08/05/24 13:51: WBC 7.9, RBC 4.74, Hgb 14.5, Hct 45.1, MCV 95.1, MCH 30.6, MCHC 32.2, RDW Std Deviation 51.9 H, RDW Coeff of Marilin 14.6, Plt Count 238, MPV 11.6, Immature Gran % (Auto) 0.300, Neut % (Auto) 57.0, Lymph % (Auto) 31.6, [place] % (Auto) 9.3, Eos % (Auto) 1.3, Baso % (Auto) 0.5, Absolute Neuts (auto) 4.5, Absolute Lymphs (auto) 2.48, Nucleated RBC % 0, PT 17.4 H, INR 1.4, APTT 30.8, Sodium 143, Potassium 3.6, Chloride 105, Carbon Dioxide 27.0, Anion Gap 11, BUN 19 H, Creatinine 0.88, Estim Creat Clear Calc 51.37, Est GFR (MDRD) Af Amer 80, Est GFR (MDRD) Non-Af 66, BUN/Creatinine Ratio 21.6 H, Glucose 117 H, Calcium 9.7 08/05/24 15:50: Urine Color SEE COMMENT BELOW, Urine Clarity Cloudy, Urine pH 8.0, Ur Specific [place] 1.015, Urine Protein 30 H, Urine Glucose (UA) Normal, Urine Ketones Negative, Urine Occult Blood 250 H, Urine Nitrite Negative, Urine Bilirubin Negative, Urine Urobilinogen Normal, Ur Leukocyte Esterase 100 H, Urine RBC 25-50 SEEN, Urine WBC 5-10 SEEN, Ur Squamous Epith Cells 0-5 SEEN, Urine Bacteria 2+, Urine Mucus 0 SEEN Imaging Radiology Impression Brain CT 08/05/24 14:42 IMPRESSION: Stable examination. No acute abnormality is seen. Reading Location: [facility] Assessment & Plan Assessment/Plan (1) Breakthrough seizure: PLAN: Plan The patient is a 78 y/o F w/ PMHx: CKD stage II per GFR trending, Hx BL Breast CA unclear type status post total right mastectomy and partial left mastectomy remission, HTN, HLD, Hx Sick sinus syndrome s/p pacemaker status, PAF, Hx CVA who presents to the [facility] ED on 08/05/2024 secondary to possible seizure on day of presentation currently on Keppra with family noting that patient suddenly started to become unresponsive with her eyes rolling backward and started shaking with patient reportedly calling for help just prior to the onset with urinary incontinence during this and following the event postictal phase with eventual improvement of admitting at that time to mild headache and nausea without emesis prompting ED evaluation to be cautious. #1. Acute Encephalopathy/Postictal secondary to Seizure disorder/epilepsy secondary to history of previous significant CVA with Acute breakthrough seizure with concern for possible aspiration with acute hypoxic respiratory failure eventually requiring nonrebreather likely contributed to/decrease seizure threshold secondary to #2: Seizure witnessed with postictal state. Improved mental status in the emergency room initially with repeat seizure activity noted to be tonic-clonic. CT head without acute intracranial pathology with noted evidence of encephalomalacia involving the right posterior parietal occipital lobes as well as the temporal lobes bilaterally in the medial aspect of the left occipital lobe with no change since previous imaging. Keppra level is pending. Will admit to PCU, maintain on telemetry in PCU on seizure precautions, obtain EEG, obtain TSH, will load with Keppra 1,000 mg in the ED and placed on increased 1,000 mg BID IV dosing with requested neurology consultation to be cautious, not candidate for MRI secondary to pacemaker however likely cause is #2, maintain on aspiration precautions, hold oral intake until clinically improving, appearing Ativan IV for seizure activity, to be cautious UDS has also been requested, will plan repeat chest x-ray in a.m. to ensure no aspiration occurrence. #2. Acute Complicated Urinary Tract Infection: UA upon ED evaluation remarkable, pending UCx, continue IVFs, monitor I/Os, continue IV Rocephin w/ transition as able pending sensitivities and speciation. No recent urine culture comparisons of note. #3. History CVA: Patient with history of notable CVA likely contributing to seizure disorder given extent, chronic left-sided complete hemiplegia as well as left vision deficits, once oral intake is safe at that time then we will continue aspirin, apixaban, baclofen, hypertensive regimen and statin therapy once oral intake safe. In the interim will transition to DE ASA, hold oral regimen, therapeutic lovenox. If patient has prolonged n.p.o. status may need to consider IV Ativan as a substitution for baclofen to also avoid any withdrawal given this is a chronic medication however this is hopefully short-term and only single daily dosing. #4. PAF: We will continue patient home Eliquis and diltiazem home regimen once oral intake safe, in the interim will transition to therapeutic lovenox and IV diltizam if needed. #5. Chronic Kidney Disease Stage II per GFR trending but has vacillated: Admission BUN/Cr 19/0.88, GFR 66, baseline renal function primarily 0.6-1.0, most recently previous to this remote 06/02/2023 creatinine 0.69, repeat BMP in AM. #6. History sick sinus syndrome: Status post pacemaker placement, encourage continued follow-up with cardiology as previously arranged. #7. Hypertension: Holding oral regimen until intake safe including valsartan, diltiazem, in the interim PRN hydralazine and if needed PRN IV diltiazem. #8. Hyperlipidemia:Temporarily holding oral statin therapy until intake safe. #9. History of breast cancer: Status post history of bilateral breast cancer with reportedly total mastectomy of the right breast and partial mastectomy left breast, unclear type, unclear other further interventions and treatments, currently considered in remission, encourage follow-up outpatient as previously arranged. #10. DVT prophylaxis: Temporarily holding Eliquis until oral intake safe, transition to lovenox in the interim. #11. CODE status: Patient JAYCE is her daughter who is and living will is currently in place. Discussed CODE status at length including difference between FULL code, DNR-CCA and DNR-CC status. Following discussions about the differences in these status, requested Full Code status. Advanced Care Planning Face to Face Time: 16 minutes. Charges/Coding Visit Charges Inpatient E&M: 40520 Init Hosp L3 Procedures Hospitalists Procedures: 65579 Advncd Care Plan 30 Min
--- NOTE | 2024-08-05 19:35 | ED.RN ---
Patient found to be having another seizure. 15L non breather applied. Mouth suctioned. Verbal order of Ativan 2mg IV given at 1928.
[2024-08-05] MEDS: levETIRAcetam IV 1,000 MG/100 ML BAG 400 MG IV ×2 (20:32→23:07)
[2024-08-05] MEDS: Ceftriaxone 1 GM/50 ML BAG IV (21:43)
[2024-08-05 22:24] LABS: Magnesium 2.1 mg/dL (1.6-2.6)
[2024-08-05] MEDS: 0.9% Normal Saline (1000mL) 1,000 ML 100 ML IV (22:57)
[2024-08-05] MEDS: Enoxaparin 80 MG/0.8 ML Syringe 70 MG SC (23:06)
[2024-08-05] MEDS: Pantoprazole Sodium 40 MG in 0.9% Normal Saline (100mL MB+) 100 ML 330 MG IV (23:06)
[2024-08-06 00:03] VITALS: BP 150/72; PULSE 78; RESP 16; TEMP 36.9; O2SAT 97
[2024-08-06 04:12] VITALS: BP 167/82; PULSE 87; RESP 16; TEMP 37.1; O2SAT 99
[2024-08-06 04:31] VITALS: BMI 23.6
[2024-08-06] MEDS: Enoxaparin 80 MG/0.8 ML Syringe 70 MG SC (05:03)
--- NOTE | 2024-08-06 05:55 | RAD_ITS ---
PROCEDURE: CHEST 1 VIEW (PORTABLE) REASON FOR EXAM: 78-year-old female, cough and shortness of breath. TECHNIQUE: Frontal view of the chest. COMPARISON: Chest radiograph 05/31/2023. FINDINGS: An ICD is present. The heart size is normal. Calcification of the thoracic aorta. No focal consolidation, pleural effusion or pneumothorax. Degenerative changes are identified within the thoracic spine. RAD/Chest 1 View (Portable) IMPRESSION: NO ACUTE FINDINGS. Reading Location: [id number]
[2024-08-06 08:28] LABS: Absolute Lymphocyte Count 0.59 X10^3/uL (0.83-4.51); Absolute Neutrophil Count 5.8 X10^3/uL (2.0-7.7); Basophil# 0.03 X10^3/uL; Basophil% 0.4 % (0-1); Eosinophil# 0.01 X10^3/uL; Eosinophils% 0.1 % (0-5); Hematocrit 42.8 % (37-47); Hemoglobin 13.9 g/dL (12.0-15.0); Lymphocyte # 0.59 X10^3/ul (0.83-4.51); Lymphocyte % 8.3 % (19-41); Mean Corp Hgb Conc 32.5 g/dL (32-36); Mean Corpuscular Hgb 30.8 pg (27.0-32.0); Mean Corpuscular Volume 94.7 fL (81-99); Mean Platelet Vol. 10.9 fl (6.2-12.0); Monocyte# 0.68 X10^3/uL; Monocyte% 9.6 % (0-10); NRBC Flagged by Analyzer 0 % (0-5); Neutrophil # 5.75 X10^3/uL (2.7-7.7); Neutrophil % 81.2 % (47-70); POSITIVE COUNT YES; POSITIVE DIFFERENTIAL YES; RBC Distribution Width CV 14.7 % (11.6-14.6); RBC Distribution Width SD 51.3 fl (35.1-43.9); Red Blood Count 4.52 M/mm3 (4.2-5.4); White Blood Count 7.1 K/mm3 (4.4-11.0)
--- NOTE | 2024-08-06 08:45 | WOUNDNOTE ---
Was asked to see patient for significant lichenification. removed the ORLIN wraps. Pt does have some lichenification noted, but is not severe. daughter present in room. this nurse asked if patient gets in the shower often. daughter states she does not shower. daughter states she just wipes her legs off with wipes. daughter applies lotion as well. pt getting ready for EEG at this time. washed legs and feet with soap and water. toenails are long, thick, and curled under in areas. pt does not go to a milk of lime slaker and has not had toenails cut for quite some time. applied petroleum to the legs to assist in softening the skin. will come back later this am to attempt to remove some of the dry skin. will reapply the ORLIN wraps. see skin photos.
[2024-08-06 08:56] LABS: ALB/GLOB Ratio 0.9 RATIO (0.9-2.4); AST(SGOT) 23 U/L (15-37); Alanine Aminotransfer ALT/SGPT 16 U/L (13-56); Albumin, Serum 3.1 g/dL (3.2-5.0); Alkaline Phosphatase 93 U/L (45-117); Anion Gap 7 (5-15); BUN 11 mg/dL (7-18); Calcium,Total 8.7 mg/dL (8.5-10.1); Chloride 112 mmol/L (98-107); Creatinine, Serum 0.61 mg/dL (0.55-1.02); EST Glomerular Filtration Rate 101 mL/min (>60); Est Glom Filt Rate - Afr Amer 122 mL/min (>60); Estimated Creatinine Clearance 50.85 ml/min; Globulin 3.4 g/dL (2.2-4.2); Glucose 88 mg/dL (74-106); Potassium 2.9 mmol/L (3.5-5.1); Protein, Total 6.5 g/dL (6.4-8.2); Sodium Level 143 mmol/L (136-145); Thyroid Stim Hormone (TSH) 0.898 uIU/mL (0.358-3.740)
--- NOTE | 2024-08-06 09:19 | WOUNDNOTE ---
wound photo: buttocks
--- NOTE | 2024-08-06 09:20 | WOUNDNOTE ---
skin photo: right lower leg
--- NOTE | 2024-08-06 09:20 | WOUNDNOTE ---
skin photo: left lower leg
[2024-08-06 09:31] LABS: Differential Indicated SCAN CRITERIA MET
[2024-08-06 09:32] LABS: Platelet Estimate SLT DEC (ADEQ)
[2024-08-06 10:00] VITALS: BP 179/83; PULSE 79; RESP 16; TEMP 36.8; O2SAT 98
[2024-08-06] MEDS: Pantoprazole Sodium 40 MG in 0.9% Normal Saline (100mL MB+) 100 ML 330 MG IV ×2 (10:19→20:55)
[2024-08-06] MEDS: Aspirin 300 MG Suppository RC (10:20)
--- NOTE | 2024-08-06 10:47 | PN.HOSP_ITS ---
Reason for Visit Reason for Visit: Diagnoses Epilepsy, unspecified, intractable, without status epilepticus (08/05/24) Subjective Subjective Saw patient at bedside this morning. Patient was having EEG done when I saw her. Daughter was also at bedside. Patient was making appropriate eye contact and answering questions with short appropriate responses. She denied any acute pain or discomfort. No other new concerns morning. Objective Data Objective Data Vital Signs: Vital Signs Temp Pulse Resp BP Pulse Ox O2 Del Method O2 Flow Rate 98.7 F 87 16 167/82 H 99 Room Air 10 08/06/24 04:12 08/06/24 04:12 08/06/24 04:12 08/06/24 04:12 08/06/24 04:12 08/06/24 08:40 08/05/24 20:00 Oxygen Flow Rate (L/min) 10 Oxygen Delivery Method Room Air Weight: 62.3 kg Body Mass Index (BMI) 23.6 Intake & Output: Intake and Output for Last 24 Hours 08/04/24 08/05/24 08/06/24 23:59 23:59 23:59 Intake Total 1360 / 1360 0 / 0 Output Total 850 / 850 Balance 1360 / 1360 -850 / -850 Lab / Micro Data 08/06/24 08:10 08/06/24 08:10 Labs: Laboratory Results - last 24 hr 08/05/24 13:51: WBC 7.9, RBC 4.74, Hgb 14.5, Hct 45.1, MCV 95.1, MCH 30.6, MCHC 32.2, RDW Std Deviation 51.9 H, RDW Coeff of Marilin 14.6, Plt Count 238, MPV 11.6, Immature Gran % (Auto) 0.300, Neut % (Auto) 57.0, Lymph % (Auto) 31.6, [place] % (Auto) 9.3, Eos % (Auto) 1.3, Baso % (Auto) 0.5, Absolute Neuts (auto) 4.5, Absolute Lymphs (auto) 2.48, Nucleated RBC % 0, PT 17.4 H, INR 1.4, APTT 30.8, Sodium 143, Potassium 3.6, Chloride 105, Carbon Dioxide 27.0, Anion Gap 11, BUN 19 H, Creatinine 0.88, Estim Creat Clear Calc 51.37, Est GFR (MDRD) Af Amer 80, Est GFR (MDRD) Non-Af 66, BUN/Creatinine Ratio 21.6 H, Glucose 117 H, Calcium 9.7, Magnesium 2.1 08/05/24 15:50: Urine Color SEE COMMENT BELOW, Urine Clarity Cloudy, Urine pH 8.0, Ur Specific [place] 1.015, Urine Protein 30 H, Urine Glucose (UA) Normal, Urine Ketones Negative, Urine Occult Blood 250 H, Urine Nitrite Negative, Urine Bilirubin Negative, Urine Urobilinogen Normal, Ur Leukocyte Esterase 100 H, Urine RBC 25-50 SEEN, Urine WBC 5-10 SEEN, Ur Squamous Epith Cells 0-5 SEEN, Urine Bacteria 2+, Urine Mucus 0 SEEN 08/06/24 08:10: WBC 7.1, RBC 4.52, Hgb 13.9, Hct 42.8, MCV 94.7, MCH 30.8, MCHC 32.5, RDW Std Deviation 51.3 H, RDW Coeff of [place]ilin 14.7 H, Plt Count TNP, MPV 10.9, Immature Gran % (Auto) 0.400, Neut % (Auto) 81.2 H, Lymph % (Auto) 8.3 L, [place] % (Auto) 9.6, Eos % (Auto) 0.1, Baso % (Auto) 0.4, Absolute Neuts (auto) 5.8, Absolute Lymphs (auto) 0.59 L, Nucleated RBC % 0, Platelet Estimate SLT DEC, Sodium 143, Potassium 2.9 L, Chloride 112 H, Carbon Dioxide 25.0, Anion Gap 7, BUN 11, Creatinine 0.61, Estim Creat Clear Calc 50.85, Est GFR (MDRD) Af Amer 122, Est GFR (MDRD) Non-Af 101, BUN/Creatinine Ratio 18.0, Glucose 88, Calcium 8.7, Total Bilirubin 0.60, AST 23, ALT 16, Alkaline Phosphatase 93, Total Protein 6.5, Albumin 3.1 L, Globulin 3.4, Albumin/Globulin Ratio 0.9, TSH 0.898 Micro: Microbiology 08/05/24 15:50 Urine, Catheterized Urine Culture - Preliminary Culture exhibits no growth. Radiography Diagnostic Testing: Radiology Impression Brain CT 08/05/24 14:42 IMPRESSION: Stable examination. No acute abnormality is seen. Reading Location: [facility] Chest X-Ray 08/06/24 05:55 IMPRESSION: NO ACUTE FINDINGS. Reading Location: [facility] Physical Exam Const alert, no apparent distress and average body habitus Constitutional Narrative: Elderly female, alert and answering short questions appropriately, otherwise sitting up in bed fairly comfortably and in no acute distress. General Appearance: cooperative and comfortable HEENT normocephalic, head/scalp atraumatic, hearing grossly normal bilaterally, nasal mucous membranes and turbinates normal and moist oral mucous membranes Eyes PERRL, EOMs intact bilaterally and conjunctivae normal Neck full ROM Chest inspection of chest normal Resp normal respiratory effort, normal air movement, no use of accessory muscles and clear to auscultation bilaterally Cardio regular rate, regular rhythm, no murmurs and peripheral pulses 2+ throughout GI normal to inspection, nondistended, normoactive bowel sounds, soft to palpation, non-tender and non-distended Back/Spine normal ROM Extremity normal to inspection and no pedal edema Skin no rashes or lesions noted Neuro moves all extremities and no focal motor deficits Psych mental status grossly normal Mood & Affect: anxious Assessment & Plan Assessment/Plan (1) Breakthrough seizure: (2) Urinary tract infection: PLAN: Plan Patient is a 78-year-old female who presented to [facility] ED on 08/05/2024 with breakthrough seizures. 1. Breakthrough seizures in setting of seizure disorder; acute postictal state, resolved ? Neurology following. Known seizure disorder, on home Keppra and family reported compliance. Had seizure at home leading to ED visit and had second tonic-clonic seizure in the ED. CT brain showed evidence of encephalomalacia involving the right posterior parietal occipital lobes as well as temporal lobes but no changes from prior imaging. Was loaded with Keppra and admitted for further management. Spot EEG completed on 08/06, read pending. Per neurology, suspect UTI may be contributing to breakthrough seizures. Will treat with Keppra 750 mg twice daily and Klonopin 0.5 mg twice daily for 3 days while treating for UTI. Will also start bowel regimen for patient and aim for 2-3 bowel movements per day. Speech therapy evaluated on 2/20 and patient okay for regular diet with one-to-one supervision. 2. UTI ? UA on admit showed 100 leukocyte esterase, negative nitrites, 2+ bacteria. Urine culture pending. Continue treatment with IV ceftriaxone for now. 3. Hypokalemia ? Potassium 2.9 on hospital day 2. Phos mildly low, mag normal. Will replete as needed. 4. Acute on chronic debility ? PT/OT/case management following. Patient lives at home with daughter and son-in-law and needs assistance from them on a regular basis. Awaiting therapy scores but patient adamantly refusing SNF placement at this time so planning for home with home health care on discharge. Chronic medical conditions: ? Paroxysmal A-fib, hypertension, hyperlipidemia, history of CVA: Stable. Continue home Eliquis, aspirin, statin, diltiazem and valsartan. ? History of sick sinus syndrome s/p pacemaker placement ? History of breast cancer s/p right breast total mastectomy and left breast partial mastectomy, in remission DVT prophylaxis: Not indicated, on Eliquis CODE STATUS: Full code, verified Expected disposition: Home with home health care, TBD Total clinical time spent by myself addressing the patient's medical issues, reviewing all the data, and collaborating with patient's care team: 35 minutes. Charges/Coding Visit Charges Inpatient E&M: 23359 Subs Hosp L2
[2024-08-06] MEDS: Acetaminophen 650 MG Suppository RC (11:35)
[2024-08-06] MEDS: levETIRAcetam IV 1,000 MG/100 ML BAG 400 MG IV (11:38)
--- NOTE | 2024-08-06 11:44 | CPS ---
Addendum entered and electronically signed by Alma Garcia, [employer] DRIER MACHINE OPERATOR 08/06/24 11:49: Correction it was Dr Wang Original Note: Dr. Butcher, hospitalist for today on this pt., was asked if EEG series could be DC'd or if it was necessary to do daily EEG'S. stated it was not needed and to DC the series.
--- NOTE | 2024-08-06 12:01 | CHAPLAIN ---
Type of Pastoral Visit _x__ Initial Visit ___ Follow-up Visit ___ On-call Visit ___ General Patient Visit ___ Spiritual Assessment ___ Family Conference ___ Bereavement ___ Rapid Response ___ Code Blue ___ Other (describe below) Pastoral Care Referral From _x__ Patient _x__ Family ___ Nurse ___ Physician ___ School Childcare Attendant ___ Inspector Toys ___ Other (describe below) Sacrament/Intervention _x__ Active listening ___ Anointing ___ Holiness ___ Bereavement ___ Communion ___ Eva exploration ___ ___ Life review _x__ Prayer ___ Reconciliation ___ Sacrament of Sick _x__ Supportive presence ___ Wedding ___ Other (describe below) Pastoral Comments daughter and son-in-law are in the room with the patient who is awake; pt welcomes this medical facilities section director and states that she is better than she was yesterday; pt denies needs but daughter requests prayer for patient; pt agrees; spoken prayer given and another offer of continued support; daughter asks for a follow up visit tomorrow if possible;
[2024-08-06 12:05] LABS: Phosphorus 2.2 mg/dL (2.5-4.9)
--- NOTE | 2024-08-06 12:34 | NEURO.CONS ---
Assessment and Plan: Neuro Assessment/Plan PARVEEN DICKSON is a 78 F with a past medical history of stroke, seizures, being evaluated by Teleneurology for breakthrough seizure in setting of likely UTI. Patient is currently stable and event consistent with seizure. Exam is consistent with her baseline post-stroke exam. Plan: - continue Keppra 750mg BID - bridge patient with Klonopin 0.5mg BID for 3 days - continue treating UTI - continue baclofen at home dose - maintain aggressive bowel movement, goal bowel movement every 2-3 days. Seizure precautions per primary team I personally attended this patient and spent a total time of 45minutes evaluating this patient including clinical assessment, review of chart, medical history imaging, and determining appropriate treatment and workup. 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 While in the ED patient was maintained on seizure precautions with IV fluids administered with Keppra level obtained for future assessment in case of regimen changes however unfortunately just prior to patient being discharged she had a second seizure noted to be a generalized tonic-clonic seizure. Family notes the last time she had a breakthrough seizure she had a UTI also. Workup in the ED included T97.8 Temporally, heart rate 98, BP 150/98, respiratory rate 21, 99% on room air eventually unfortunately with seizure activity just prior to attempted discharge with now most recent vital signs heart rate 89, BP 142/55, respiratory rate 18, 100% on a nonrebreather 15 L, CBC with WC 7.9, hemoglobin 14.5, platelet 238 without marked shift, unremarkable coags sides PT 17.4, BMP with BUN/creatinine 19/0.88, GFR 66, glucose 117, urinalysis with cloudy appearing urine, specific raphe 1.015, protein 30, occult blood 250, nitrite negative, leukocyte esterase 100 with urine RBCs 25-50 and urine WBCs 5-10 with 2+ urine bacteria, urine culture pending per ED, Keppra level pending per ED, CT of the brain with stable examination with encephalomalacia involving the right posterior parietal occipital lobes as well as the temporal lobes bilaterally medial aspect of the left occipital lobe with no change since prior study. In the ED patient administered Zofran 4 mg IV x 2, morphine 4 mg IV x 1, hydralazine 10 mg IV x 1, ativan 2 mg IV x 2, 1 L normal saline. Discussed current status with ED physician and requested she be loaded with Keppra 1,000 mg IV x 1. Discussed that if following load she has no further breakthrough seizures would be Neurologic History Currently has a headache 02/24. She feels back to normal otherwise. BECKER is currently at [facility] and in back. Has a history of seizures and on 750mg BID. No missed doses of medication, tolerates the Keppra well. Has been on Keppra for 9 years, May 2023 she increased the Keppra to 750mg BID after a stroke. Had not had a seizure since then. No history of frequent UTIs. 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 [facility] Medical History Acute anal fissure Acute constipation Epileptic seizure Atrial fibrillation Palpitations Sick sinus syndrome Bilateral breast cancer Cardiac pacemaker in situ Essential hypertension Hyperlipidemia Seizure disorder as sequela of cerebrovascular accident CVA (cerebral vascular accident) Bradycardia Home Medications ?Medication ?Instructions ?Recorded ?Last Taken ?Type aspirin 81 mg chewable tablet 81 mg PO DAILY 04/23/15 08/05/24 History baclofen 10 mg tablet 5 mg PO QHS 06/03/15 12/24/18 History carboxymethylcellulose 0.5 2 drp EACH EYE DAILY PRN PRN Dry 12/25/18 12/25/18 History %-glycerin 0.9 % eye drops Eye multivitamin-iron 9 mg-folic acid 1 tab PO DAILY supplement 12/25/18 08/05/24 History 400 mcg-calcium and minerals tablet polyethylene glycol 3350 17 17 gm PO DAILY constipation 12/25/18 08/05/24 History gram/dose oral powder apixaban 5 mg tablet (Eliquis) 5 mg PO BID #180 tabs 05/26/19 08/05/24 Rx prochlorperazine maleate 10 mg 10 mg PO Q6H PRN nausea and 05/26/19 Unknown History tablet (Compazine) vomiting valsartan 160 mg tablet 160 mg PO DAILY #90 tabs 05/26/19 08/04/24 Rx diltiazem HCl 180 mg 180 mg PO DAILY #30 caps 06/05/19 08/05/24 Rx capsule,extended release 24 hr levetiracetam 750 mg tablet 750 mg PO BID #60 tabs 06/02/23 08/05/24 Rx (Keppra) atorvastatin 40 mg tablet 40 mg PO DAILY 08/05/24 Unknown History nystatin 100,000 unit/gram topical 1 applic topical BID PRN rash 08/05/24 Unknown History powder (Nyamyc) Allergy/AdvReac Type Severity Reaction Status Date / Time Sulfa (Sulfonamide Allergy Unknown Unknown Verified 08/05/24 13:39 Antibiotics) tetracycline Allergy Unknown Unknown Verified 08/05/24 13:39 naproxen AdvReac Swelling Verified 08/05/24 13:39 Family History Mother Heart disease Diabetes Hypertension Cancer breast Father Cancer Brother CVA (cerebral vascular accident) Surgical History S/P cardiac pacemaker procedure History of partial mastectomy of left breast Hx of total mastectomy of right breast History of section Social History household members: family housing: house current occupational status: retired Smoking Status: Never smoker alcohol intake: never substance use type: does not use caffeine: No Vital Signs Vital Signs Vital Signs: 08/05/24 13:35 08/05/24 14:34 08/05/24 15:00 Temperature 97.8 F Temperature Source Temporal Pulse Rate 98 77 80 Respiratory Rate 21 H 21 H 27 H Respiratory Effort Blood Pressure 150/98 H 173/72 H 150/113 H Blood Pressure Mean 115 105 121 Blood Pressure Source Blood Pressure Position Blood Pressure Location Pulse Ox 99 98 Oxygen Delivery Method Room Air Room Air Oxygen Flow Rate (L/min) 08/05/24 15:15 08/05/24 16:00 08/05/24 17:00 Temperature Temperature Source Pulse Rate 69 70 68 Respiratory Rate 16 19 H 12 Respiratory Effort Blood Pressure 175/76 H 206/64 H Blood Pressure Mean 105 87 Blood Pressure Source Blood Pressure Position Blood Pressure Location Pulse Ox Oxygen Delivery Method Oxygen Flow Rate (L/min) 08/05/24 18:12 08/05/24 18:15 08/05/24 19:00 Temperature Temperature Source Pulse Rate 95 89 97 Respiratory Rate 16 18 24 H Respiratory Effort Blood Pressure 171/75 H 142/55 H 158/69 H Blood Pressure Mean 107 84 98 Blood Pressure Source Blood Pressure Position Blood Pressure Location Pulse Ox 100 100 99 Oxygen Delivery Method Non-Rebreather Non-Rebreather Non-Rebreather Oxygen Flow Rate (L/min) 15 15 08/05/24 20:00 08/05/24 21:00 08/05/24 22:00 Temperature Temperature Source Pulse Rate 107 H 101 H 84 Respiratory Rate 18 24 H 16 Respiratory Effort Blood Pressure 182/66 H 162/80 H 181/76 H Blood Pressure Mean 104 107 111 Blood Pressure Source Blood Pressure Position Blood Pressure Location Pulse Ox 100 93 95 Oxygen Delivery Method Non-Rebreather Room Air Room Air Oxygen Flow Rate (L/min) 10 08/05/24 22:15 08/05/24 22:17 08/05/24 22:43 Temperature 98.8 F 98.8 F 98.5 F Temperature Source Axillary Temporal Pulse Rate 86 85 99 Respiratory Rate 18 16 16 Respiratory Effort Blood Pressure 169/76 H 169/76 H 154/95 H Blood Pressure Mean 107 107 114 Blood Pressure Source Blood Pressure Position Blood Pressure Location Pulse Ox 95 94 99 Oxygen Delivery Method Room Air Room Air Oxygen Flow Rate (L/min) 08/05/24 23:35 08/06/24 00:03 08/06/24 04:12 Temperature 98.4 F 98.7 F Temperature Source Temporal Temporal Pulse Rate 78 87 Respiratory Rate 16 16 Respiratory Effort Normal Blood Pressure 150/72 H 167/82 H Blood Pressure Mean 98 110 Blood Pressure Source Monitor Blood Pressure Position Semi-Fowlers Blood Pressure Location Right Arm Pulse Ox 97 99 Oxygen Delivery Method Room Air Room Air Room Air Oxygen Flow Rate (L/min) 08/06/24 08:40 08/06/24 10:00 Temperature 98.3 F Temperature Source Temporal Pulse Rate 79 Respiratory Rate 16 Respiratory Effort Blood Pressure 179/83 H Blood Pressure Mean 115 Blood Pressure Source Blood Pressure Position Blood Pressure Location Pulse Ox 98 Oxygen Delivery Method Room Air Room Air Oxygen Flow Rate (L/min) Weight Weight: 62.3 kg Body Mass Index (BMI) 23.6 EEG Results Procedure Details EEG Procedure Details: PARVEEN DICKSON is a 78 year old F with a past medical history of , who presents for evaluation of Electroencephalogram on DATE at TIME Physical Exam Narrative -? General: Laying comfortably in bed; in no acute distress. -? HENT: Normal oropharynx and mucosa. Normal external appearance of ears and nose. Exophthalmos. -? Neck: Supple, no pain or tenderness -? CV:? No peripheral edema. -? Pulmonary:? Normal respiratory effort. -? Ext: No cyanosis, edema, or deformity -? Skin: No rash. Normal palpation of skin.? -? Musculoskeletal: full range of motion; no joint tenderness. Normal digits and nails by inspection. No clubbing. -? NEURO: -? Mental Status: The patient was alert and oriented to time, place, and person. Normal recent/remote memory, concentration, and general fund of knowledge. -? Language: speech is clear.? Naming, repetition, fluency, and comprehension intact. -? Cranial Nerves: PERRL 3mm/brisk. EOMI, visual gao full, no facial asymmetry, facial sensation intact, hearing intact, tongue midline, no evidence of atrophy or fibrillations -? Motor: RUE drift , LUE no movement RLE antigravity , RLE very rigid -? Tone: is normal and bulk is normal -? Sensation- Intact to light touch bilaterally -? Coordination: deferred -? Gait- deferred Lab / Micro Data 08/06/24 08:10 08/06/24 08:10 Labs: Laboratory Results - last 24 hr 08/05/24 13:51: WBC 7.9, RBC 4.74, Hgb 14.5, Hct 45.1, MCV 95.1, MCH 30.6, MCHC 32.2, RDW Std Deviation 51.9 H, RDW Coeff of Marilin 14.6, Plt Count 238, MPV 11.6, Immature Gran % (Auto) 0.300, Neut % (Auto) 57.0, Lymph % (Auto) 31.6, Young % (Auto) 9.3, Eos % (Auto) 1.3, Baso % (Auto) 0.5, Absolute Neuts (auto) 4.5, Absolute Lymphs (auto) 2.48, Nucleated RBC % 0, PT 17.4 H, INR 1.4, APTT 30.8, Sodium 143, Potassium 3.6, Chloride 105, Carbon Dioxide 27.0, Anion Gap 11, BUN 19 H, Creatinine 0.88, Estim Creat Clear Calc 51.37, Est GFR (MDRD) Af Amer 80, Est GFR (MDRD) Non-Af 66, BUN/Creatinine Ratio 21.6 H, Glucose 117 H, Calcium 9.7, Magnesium 2.1 08/05/24 15:50: Urine Color SEE COMMENT BELOW, Urine Clarity Cloudy, Urine pH 8.0, Ur Specific [place] 1.015, Urine Protein 30 H, Urine Glucose (UA) Normal, Urine Ketones Negative, Urine Occult Blood 250 H, Urine Nitrite Negative, Urine Bilirubin Negative, Urine Urobilinogen Normal, Ur Leukocyte Esterase 100 H, Urine RBC 25-50 SEEN, Urine WBC 5-10 SEEN, Ur Squamous Epith Cells 0-5 SEEN, Urine Bacteria 2+, Urine Mucus 0 SEEN 08/06/24 08:10: WBC 7.1, RBC 4.52, Hgb 13.9, Hct 42.8, MCV 94.7, MCH 30.8, MCHC 32.5, RDW Std Deviation 51.3 H, RDW Coeff of Marilin 14.7 H, Plt Count TNP, MPV 10.9, Immature Gran % (Auto) 0.400, Neut % (Auto) 81.2 H, Lymph % (Auto) 8.3 L, Young % (Auto) 9.6, Eos % (Auto) 0.1, Baso % (Auto) 0.4, Absolute Neuts (auto) 5.8, Absolute Lymphs (auto) 0.59 L, Nucleated RBC % 0, Platelet Estimate SLT DEC, Sodium 143, Potassium 2.9 L, Chloride 112 H, Carbon Dioxide 25.0, Anion Gap 7, BUN 11, Creatinine 0.61, Estim Creat Clear Calc 50.85, Est GFR (MDRD) Af Amer 122, Est GFR (MDRD) Non-Af 101, BUN/Creatinine Ratio 18.0, Glucose 88, Calcium 8.7, Phosphorus 2.2 L, Total Bilirubin 0.60, AST 23, ALT 16, Alkaline Phosphatase 93, Total Protein 6.5, Albumin 3.1 L, Globulin 3.4, Albumin/Globulin Ratio 0.9, TSH 0.898 Micro: Microbiology 08/05/24 15:50 Urine, Catheterized Urine Culture - Preliminary Culture exhibits no growth. Imaging Radiology Impression Brain CT 08/05/24 14:42 IMPRESSION: Stable examination. No acute abnormality is seen. Reading Location: [facility] Chest X-Ray 08/06/24 05:55 IMPRESSION: NO ACUTE FINDINGS. Reading Location: [facility] Active Medications Active Medications Active Medications: Current Medications Generic Name Dose Route Start Last Admin Trade Name Freq PRN Reason Stop Dose Admin Acetaminophen 650 mg 08/05/24 22:42 08/06/24 11:35 Acetaminophen 650 Mg Suppository RC 650 mg Q4H PRN PRN Administration Fever, pain 1-10 Albuterol Sulfate 2.5 mg 08/05/24 22:42 Albuterol 2.5 Mg/3 Ml Vial.Neb. INHALATION Q2H PRN PRN Dyspnea, wheezing Aspirin 300 mg 08/06/24 10:00 08/06/24 10:20 Aspirin 300 Mg Suppository RC 300 mg DAILY NICOLASA Administration Enoxaparin Sodium 70 mg 08/05/24 22:42 08/06/24 05:03 Enoxaparin 80 Mg/0.8 Ml Syringe SC 70 mg Q12@0600,1800 NICOLASA Administration Hydralazine HCl 10 mg 08/05/24 22:42 Hydralazine 20 Mg/Ml Vial IV Q4H PRN PRN SBP > 160 Protocol Ceftriaxone Sodium 1 gm in 50 mls @ 100 mls/hr 08/06/24 22:00 Rocephin IV Q24H NICOLASA Levetiracetam 1,000 mg in 100 mls @ 400 mls/hr 08/05/24 22:42 08/06/24 11:38 IV 400 mls/hr Q12 NICOLASA Administration Pantoprazole Sodium 40 mg/ 110 mls @ 330 mls/hr 08/05/24 22:42 08/06/24 10:48 Sodium Chloride IV Infused Q12 NICOLASA Infusion Sodium Chloride 100 mls @ 15 mls/hr 08/05/24 22:43 IV .Q6H40M PRN Saline Flush Sodium Chloride 100 mls @ 15 mls/hr 08/05/24 22:43 IV .Q6H40M PRN Additional IVPB Infusion Potassium Chloride 10 meq in 100 mls @ 100 mls/hr 08/06/24 12:00 IV BOLUS 08/06/24 15:59 Q1H NICOLASA Lorazepam 1 mg 08/05/24 22:42 Lorazepam 2 Mg/Ml Syringe IV PRN PRN breakthrough seizure,notify Ondansetron HCl 4 mg 08/05/24 22:42 Ondansetron 4 Mg/2 Ml Vial IV Q8H PRN PRN NAUSEA/VOMITING Prochlorperazine Edisylate 5 mg 08/05/24 22:42 Prochlorperazine 10 Mg/2 Ml Vial IV Q4H PRN PRN Breakthrough Nausea/Vomiting Sodium Chloride 10 - 40 ml 08/05/24 22:43 0.9% Saline Lock 10 Ml Syringe IV UD PRN SALINE FLUSH
[2024-08-06] MEDS: Potassium Chloride 10mEq/100mL 10 MEQ/100 ML IV.SOLN. 100 MEQ IV BOLUS ×4 (13:16→16:45)
[2024-08-06] MEDS: Polyethylene Glycol 3350 17 GM PACKET PO (14:20)
[2024-08-06] MEDS: clonazePAM 0.5 MG Tablet PO ×2 (14:20→20:56)
[2024-08-06] MEDS: Senna Tablet 2 TABLET PO (14:21)
--- NOTE | 2024-08-06 14:32 | CASEMGMT ---
Addendum entered by Kenny Peters 08/06/24 15:30: Barndi from [facility] calls this RN CM and states that they are interested in the referral and that they will return call tomorrow with a definitive response. CM to follow. Original Note: RN CM Assessment Face to Face with patient for initial transition planning/care coordination assessment. RN CM introduced self and role at [facility], pt voices understanding. Pt is A&Ox2 and is resting comfortably in bed and is calm. Pt is alert to self and place but is unaware of the time. Pt daughter at bedside and willing to help answer this MIKE TROTTER questions for assessment. Care providers, pharmacy, and demographics verified. Admitting dx: Seizure, UTI LACE Strata: 2 PCP: Nelia Quinonez Specialists: Denies Preferred Pharmacy[facility] Insurance: [employer] A/B, [employer] Prescription Benefit: Yes LNOK: Amelia Cosby (Daughter) Living Arrangements: Pt lives with her daughter and SG in a single story home with a ramp to enter ADLs/IADLs: Dependent on the pt daughter and SG Transportation: [place], Ambulance. Care Management to follow for transportation needs @ DC DME: [facility]. W/C. Hospital Bed. Shower chair. HHC/SNF: Denies HH Hx. Hx @ [facility] TCU and Rehab in [place] s/p CVA Pt?s goal: Return home Plan: Anticipate return home with skilled HHC at the time of DC. Follow for transportation needs. Current 6-Click score is 6 as the pt is non-ambulatory. PT and OT were held today, see notes. At this time, the pt and the pt daughter adamantly deny SNF needs and want to go home at the time of DC with HHC. Pt and pt daughter deny wanting to review a list of local in-network HHC companies and state that they prefer [facility] HH. TC to [facility] HH and referral made for SN, PT, and OT. CM and SW to follow. Carl Peters RN, CM
[2024-08-06 20:00] VITALS: BP 149/59; PULSE 67; RESP 18; TEMP 37.2; O2SAT 100
[2024-08-06] MEDS: levETIRAcetam 750 MG Tablet PO (20:56)
[2024-08-06] MEDS: Atorvastatin Calcium 40 MG Tablet PO (20:56)
[2024-08-06] MEDS: Baclofen 10 MG Tablet 5 MG PO (20:56)
[2024-08-06] MEDS: Acetaminophen 325 MG Tablet 650 MG PO (20:57)
[2024-08-06] MEDS: APIXABAN 5 MG TABLET PO (21:00)
[2024-08-06] MEDS: Ceftriaxone 1 GM/50 ML BAG IV (21:27)
[2024-08-06 22:00] VITALS: BP 149/59; PULSE 61; RESP 16; TEMP 37.2; O2SAT 98
[2024-08-07 02:00] VITALS: BP 123/64; PULSE 65; RESP 15; TEMP 36.4; O2SAT 95
[2024-08-07 04:53] VITALS: BMI 23.3
[2024-08-07 07:12] LABS: Anion Gap 6 (5-15); BUN 13 mg/dL (7-18); BUN/Creat Ratio 19.6 RATIO (10-20); Calcium,Total 8.6 mg/dL (8.5-10.1); Chloride 108 mmol/L (98-107); Creatinine, Serum 0.66 mg/dL (0.55-1.02); EST Glomerular Filtration Rate 92 mL/min (>60); Est Glom Filt Rate - Afr Amer 111 mL/min (>60); Estimated Creatinine Clearance 50.85 ml/min; Glucose 84 mg/dL (74-106); Potassium 3.3 mmol/L (3.5-5.1); Sodium Level 139 mmol/L (136-145)
[2024-08-07 08:00] VITALS: BP 156/61; PULSE 74; RESP 16; TEMP 36.3; O2SAT 100
--- NOTE | 2024-08-07 08:23 | WOUNDNOTE ---
In to reassess bilateral lower legs and feet. removed the ORLIN wraps and dressings. no drainage noted. washed legs and feet with soap and water. pat dry. was able to remove more dry skin this am. edema improved. applied petroleum to legs to soften the dry skin and wrapped with kerlix. reapplied the ORLIN wraps. pt tolerated well. family present at bedside.
[2024-08-07] MEDS: dilTIAZem CD 180 MG Capsule PO (09:31)
[2024-08-07] MEDS: Aspirin 81 MG TAB.CHEW PO (09:31)
[2024-08-07] MEDS: APIXABAN 5 MG TABLET PO (09:32)
[2024-08-07] MEDS: Losartan Potassium 50 MG Tablet PO (09:32)
[2024-08-07] MEDS: levETIRAcetam 750 MG Tablet PO (09:32)
[2024-08-07] MEDS: Polyethylene Glycol 3350 17 GM PACKET PO (09:32)
[2024-08-07] MEDS: Pantoprazole Sodium 40 MG in 0.9% Normal Saline (100mL MB+) 100 ML 330 MG IV (09:39)
[2024-08-07] MEDS: Potassium Chloride Oral Soln 20 MEQ/15 ML UDC 40 MEQ PO (09:39)
[2024-08-07] MEDS: Senna Tablet 2 TABLET PO (09:39)
[2024-08-07] MEDS: clonazePAM 0.5 MG Tablet PO (09:52)
[2024-08-07 12:00] VITALS: BP 130/60; PULSE 66; RESP 15; TEMP 36.6; O2SAT 98
[2024-08-07 13:00] VITALS: O2SAT 97
--- NOTE | 2024-08-07 14:02 | DCINST_ITS ---
Discharge Instructions Diet Discharge Diet: No restrictions DC O2, CPAP, BIPAP needs Home O2 Discharge instructions: No Dressing / Incision Discharge Activity: No Restrictions Follow Up Care Test Results: Test results from this visit will be discussed in further detail at your follow- up appointment, if applicable. Discharge Plan Admission Admit Date/Time: 08/05/24 21:45 Primary Reason for Your Visit: breakthrough seizure Attending Provider: Vaibhav Isaacs Primary Care Provider: Nelia Quinonez Consulting Providers: Len Brown; Brandi Marie; Mera Yanes; Woody Martines; Luke Issa; Jesús Casas; TAYLOR DARNELL; Chiara Lawrence; Marielena Dhaliwal; Gianfranco Reyes; Leia Mitchell; Ysabel Yap; David Correa; Melina Gordon; Ivette Saba; Lui Phan; Adrienne Domingo; Manuelito Self; Flo Goff; Marcos Butt; Charlene Diaz; Jessica Vargas; Dylan Mazariegos; Joseph Gonzalez; Bakari Barber; Shahla Bethea; Marinaela,Leti Instructions Additional Instructions / Restrictions: Please take Keflex for 3 more days to complete course of antibiotics for UTI. Take clonazepam for 3 more days while on antibiotics. Take senna and MiraLAX daily to promote 2-3 bowel movements daily while on these medications. Discharge Orders/Prescriptions Prescriptions: New sennosides [senna] 8.6 mg Tablet 17.2 mg PO BID 5 Days Qty: 20 0RF clonazepam 0.5 mg Tablet 0.5 mg PO BID 3 Days Qty: 6 0RF cephalexin 500 mg capsule 500 mg PO TID 3 Days Qty: 9 0RF Continued valsartan 160 mg tablet 160 mg PO DAILY Qty: 90 3RF Eliquis 5 mg tablet 5 mg PO BID Qty: 180 3RF prochlorperazine maleate [Compazine] 10 mg tablet 10 mg PO Q6H PRN (Reason: nausea and vomiting) aspirin 81 MG tablet,chewable 81 mg PO DAILY Patient Comments: HEART HEALTH/ PREVENTION Rx Instructions: takes saturday- saturday and yanick baclofen 10 MG tablet 5 mg PO QHS Patient Comments: MUSCLE RELAXER polyethylene glycol 3350 238 GM powder 17 gm PO DAILY carboxymethylcellulose-glycern 15 ML drops 2 drp EACH EYE DAILY PRN PRN (Reason: Dry Eye) [id number] 1 EACH tablet 1 tab PO DAILY levetiracetam [Keppra] 750 mg tablet 750 mg PO BID Qty: 60 1RF atorvastatin 40 mg tablet 40 mg PO DAILY nystatin [Nyamyc] 100,000 unit/gram Powder 1 applic topical BID PRN (Reason: rash) Protocol: *Topical Application Instructions APPLICATION INSTRUCTIONS: to groin diltiazem HCl 180 mg capsule,extended release 24hr 180 mg PO DAILY Qty: 30 12RF Referrals / Follow Up: Nelia Quinonez MD [Primary Care Provider] - 5-7 Days Disposition Disposition (needs filled in before D/C Order can be placed): Home Health Servic e
--- NOTE | 2024-08-07 14:02 | PCM.DC.SUM ---
Providers Date of Admission: 08/05/24 Date of Discharge: 08/07/24 Primary Care Physician: Dr. 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 Comment: Reason for Consult:: Notable BL LE lichenification Consult: Tele-Neurology Routine Consulting Provider: [facility] Reason for Consult: Breakthrough seizures, UTI EMERGENT Consult: No MD Notified: Yes Date Notified: 08/05/24 Time Notified: 21:49 Method of Notification: Answering Service Nursing Unit Staff Notify [facility] of Tele-Neurology Consult: Yes Reason For Visit: BREAKTHROUGH SEIZURE, UTI Diagnosis Discharge Diagnosis (1) Breakthrough seizure: Status: Acute Code(s): G40.919 - Epilepsy, unspecified, intractable, without status epilepticus (2) Urinary tract infection: Status: Acute Code(s): N39.0 - Urinary tract infection, site not specified Medications at Discharge Home Medications aspirin 81 mg chewable tablet 81 mg PO DAILY 04/23/15 baclofen 10 mg tablet 5 mg PO QHS 06/03/15 carboxymethylcellulose 0.5 %-glycerin 0.9 % eye drops 2 drp EACH EYE DAILY PRN PRN Dry Eye 12/25/18 multivitamin-iron 9 mg-folic acid 400 mcg-calcium and minerals tablet 1 tab PO DAILY supplement 12/25/18 polyethylene glycol 3350 17 gram/dose oral powder 17 gm PO DAILY constipation 12/25/18 apixaban 5 mg tablet (Eliquis) 5 mg PO BID #180 tabs 05/26/19 prochlorperazine maleate 10 mg tablet (Compazine) 10 mg PO Q6H PRN nausea and vomiting 05/26/19 valsartan 160 mg tablet 160 mg PO DAILY #90 tabs 05/26/19 diltiazem HCl 180 mg capsule,extended release 24 hr 180 mg PO DAILY #30 caps 06/05/19 levetiracetam 750 mg tablet (Keppra) 750 mg PO BID #60 tabs 06/02/23 atorvastatin 40 mg tablet 40 mg PO DAILY 08/05/24 nystatin 100,000 unit/gram topical powder (Nyamyc) 1 applic topical BID PRN rash 08/05/24 cephalexin 500 mg capsule 500 mg PO TID 3 days #9 caps 08/07/24 clonazepam 0.5 mg tablet 0.5 mg PO BID 3 days #6 tabs 08/07/24 sennosides 8.6 mg tablet (senna) 17.2 mg (2 x 8.6 mg) PO BID 5 days #20 tabs 08/07/24 Hospital Course Operations None Procedures Electroencephalogram, EKG and - (CT brain, chest x-ray) Summary of Care Provided Minutes Spent on Discharge: 35 Hospital Course: Patient is a 78-year-old female who presented to [facility] ED on 08/05/2024 with breakthrough seizures. Hospital course as noted below. Patient discharged home with home health care in stable condition on 08/07. 1. Breakthrough seizures in setting of seizure disorder; acute postictal state, resolved ? Neurology followed. Known seizure disorder, on home Keppra and family reported compliance. Had seizure at home leading to ED visit and had second tonic-clonic seizure in the ED. CT brain showed evidence of encephalomalacia involving the right posterior parietal occipital lobes as well as temporal lobes but no changes from prior imaging. Was loaded with Keppra and admitted for further management. Spot EEG on 08/06 with no active seizure activity noted. Speech therapy evaluated on 08/06 and patient okay for regular diet with one-to-one supervision. Per neurology, suspect UTI may be contributing to breakthrough seizures. Okay to continue home Keppra 750 mg twice daily will also treat with Klonopin 0.5 mg twice daily for 3 days while completing course of antibiotics for UTI. Also treat with scheduled senna and MiraLAX and aim for 2-3 bowel movements per day while on Klonopin. Stable for discharge home on 08/07. 2. UTI ? UA on admit showed 100 leukocyte esterase, negative nitrites, 2+ bacteria. Urine culture with no growth. Treated with IV ceftriaxone while inpatient and will discharge on Keflex to complete 5-day course of antibiotics total. 3. Hypokalemia ? Potassium 2.9 on hospital day 2. Phos mildly low, mag normal. Repleted with improvement. 4. Acute on chronic debility ? PT/OT/case management followed. Patient has significant disability at baseline after recent CVA with significant left-sided deficits. Lives with son and [id number] and they assist on a daily basis. Poor therapy scores here but patient and family okay with patient going home with plan for home health care. Chronic medical conditions: ? Paroxysmal A-fib, hypertension, hyperlipidemia, history of CVA: Stable. Continue home Eliquis, aspirin, statin, diltiazem and valsartan. ? History of sick sinus syndrome s/p pacemaker placement ? History of breast cancer s/p right breast total mastectomy and left breast partial mastectomy, in remission Total clinical time spent by myself addressing the patient's medical issues, reviewing all the data, and collaborating with patient's care team: 35 minutes. Physical Exam Const alert, no apparent distress and average body habitus Constitutional Narrative: Elderly female, chronically ill-appearing, alert and answering short questions appropriately, otherwise sitting up in bed fairly comfortably and in no acute distress. Stable. General Appearance: cooperative and comfortable HEENT normocephalic, head/scalp atraumatic, hearing grossly normal bilaterally, nasal mucous membranes and turbinates normal and moist oral mucous membranes Eyes PERRL, EOMs intact bilaterally and conjunctivae normal Neck full ROM Chest inspection of chest normal Resp normal respiratory effort, normal air movement, no use of accessory muscles and clear to auscultation bilaterally Cardio regular rate, regular rhythm, no murmurs and peripheral pulses 2+ throughout GI normal to inspection, nondistended, normoactive bowel sounds, soft to palpation, non-tender and non-distended Back/Spine normal ROM Extremity normal to inspection and no pedal edema Skin no rashes or lesions noted Neuro Neuro Narrative: Significant left sided deficits noted from prior stroke, chronic. Speech: speech normal Psych mental status grossly normal Weight / BMI Weight Weight: 61.7 kg Body Mass Index (BMI) 23.3 ABG / Lab / Microbiology Data 08/06/24 08:10 08/07/24 Unknown Laboratory: Laboratory Results - last 24 hr 08/07/24 : Sodium 139, Potassium 3.3 L, Chloride 108 H, Carbon Dioxide 25.0, Anion Gap 6, BUN 13, Creatinine 0.66, Estim Creat Clear Calc 50.85, Est GFR (MDRD) Af Amer 111, Est GFR (MDRD) Non-Af 92, BUN/Creatinine Ratio 19.6, Glucose 84, Calcium 8.6 Microbiology: Microbiology 08/05/24 15:50 Urine, Catheterized Urine Culture - Final Culture exhibits no growth. D/C Instructions DC O2, CPAP, BIPAP Needs Home O2 Discharge instructions: No Meaningful Use Info Meaningful Use Meaningful Use Diagnoses (Choose all that apply): None applicable Ischemic Stroke Statin Dosing Therapy Reference: STATIN DOSE THERAPY REFERENCE: * Patients > 75 years receive moderate or high dose statin therapy. * Patients 75 years or YOUNGER should receive HIGH intensity statin dose unless contraindicated. You will be required to document reason for non-treatment if statin daily dose does not meet guidelines. HIGH DOSE STATIN THERAPY DAILY Atorvastatin > than or = to 40 mg Rosuvastatin > than or = to 20 mg Amlodipine + Atorvastatin > than or = to 2.5/40 mg Ezetimibe + Simvastatin 10/80 mg Simvastatin 80mg Discharge Plan Admission Admit Date/Time: 08/05/24 21:45 Primary Reason for Your Visit: breakthrough seizure Attending Provider: Vaibhav Isaacs Primary Care Provider: Nelia Quinonez Consulting Providers: Len Brown; Brandi Marie; Mera Yanes; Woody Martines; Luke Issa; Jesús Casas; TAYLOR DARNELL; Chiara Lawrence; Marielena Dhaliwal; Gianfranco Reyes; Leia Mitchell; Ysabel Yap; David Correa; Melina Gordon; Ivette Saba; Lui Phan; Adrienne Domingo; Manuelito Self; Flo Goff; Marcos Butt; Charlene Diaz; Jessica Vargas; Dylan Mazariegos; Joseph Hernandez; Bakari Barber; Shahla Bethea; Leti Bear Instructions Additional Instructions / Restrictions: Please take Keflex for 3 more days to complete course of antibiotics for UTI. Take clonazepam for 3 more days while on antibiotics. Take senna and MiraLAX daily to promote 2-3 bowel movements daily while on these medications. Discharge Orders/Prescriptions Prescriptions: New sennosides [senna] 8.6 mg Tablet 17.2 mg PO BID 5 Days Qty: 20 0RF clonazepam 0.5 mg Tablet 0.5 mg PO BID 3 Days Qty: 6 0RF cephalexin 500 mg capsule 500 mg PO TID 3 Days Qty: 9 0RF Continued valsartan 160 mg tablet 160 mg PO DAILY Qty: 90 3RF Eliquis 5 mg tablet 5 mg PO BID Qty: 180 3RF prochlorperazine maleate [Compazine] 10 mg tablet 10 mg PO Q6H PRN (Reason: nausea and vomiting) aspirin 81 MG tablet,chewable 81 mg PO DAILY Patient Comments: HEART HEALTH/ PREVENTION Rx Instructions: takes saturday- saturday and saturday baclofen 10 MG tablet 5 mg PO QHS Patient Comments: MUSCLE RELAXER polyethylene glycol 3350 238 GM powder 17 gm PO DAILY carboxymethylcellulose-glycern 15 ML drops 2 drp EACH EYE DAILY PRN PRN (Reason: Dry Eye) [id number]-calcium-mins 1 EACH tablet 1 tab PO DAILY levetiracetam [Keppra] 750 mg tablet 750 mg PO BID Qty: 60 1RF atorvastatin 40 mg tablet 40 mg PO DAILY nystatin [Nyamyc] 100,000 unit/gram Powder 1 applic topical BID PRN (Reason: rash) Protocol: *Topical Application Instructions APPLICATION INSTRUCTIONS: to groin diltiazem HCl 180 mg capsule,extended release 24hr 180 mg PO DAILY Qty: 30 12RF Referrals / Follow Up: Nelia Quinonez MD [Primary Care Provider] - 5-7 Days Disposition Disposition (needs filled in before D/C Order can be placed): Home Health Service Charges/Coding Visit Charges Inpatient E&M: 80279 Disch Hosp >30min
--- NOTE | 2024-08-07 14:21 | CASEMGMT ---
Addendum entered by Kenny Peters 08/07/24 14:50: Brandi from [facility] returns call and states that they are able to accept the pt for SOC next Saturday, as long as the pt family is OK with this. RN CM to pt room at this time. Pt daughter and SG @ bedside. Pt daughter and SG states that they are OK with the HH starting next Saturday. DC Info updated. SW is getting transportation set up for the pt. Pt family deny further questions at this time. Pt RN updated. Original Note: Pt has an order for DC placed. TC to [facility]. No answer at this time. VM left. Awaiting return response.
--- NOTE | 2024-08-07 14:42 | CASEMGMT ---
Social Work SW spoke w/pt, daughter and son-in-law in room. Pt will need an ambulance home, the home has a ramped entry. SW spoke w/RN, pt is good to be d/c anytime. SW [facility], set up a 3:30pm ambulance. SW let RN know time of pickup, she will let pt know. SHAYLA Bunch
[2024-08-08 09:08] LABS: KEPPRA (LEVETIRACETAM) <2.0 ug/mL (10.0-40.0)
== END 2024-08-07 16:27 | disposition home health service (06) | DRG 100 ==
LOC: ED 21:39 → ICU 22:17
PROVIDERS: Admitting Provider Family Medicine; Emergency Provider Emergency Medicine; PCP Internal Medicine; Visit Provider Hospitalist
DX: G40.419 Other generalized epilepsy and epileptic syndromes, intractable, without status epilepticus (principal); J96.01 Acute respiratory failure with hypoxia; G93.49 Other encephalopathy; I69.354 Hemiplegia and hemiparesis following cerebral infarction affecting left non-dominant side; N39.0 Urinary tract infection, site not specified; I12.9 Hypertensive chronic kidney disease with stage 1 through stage 4 chronic kidney disease, or unspecified chronic kidney disease; I48.0 Paroxysmal atrial fibrillation; I49.5 Sick sinus syndrome; E78.5 Hyperlipidemia, unspecified; N18.2 Chronic kidney disease, stage 2 (mild); E87.6 Hypokalemia; I69.398 Other sequelae of cerebral infarction; R54 Age-related physical debility; H53.40 Unspecified visual field defects; Z79.82 Long term (current) use of aspirin; Z95.0 Presence of cardiac pacemaker; Z79.01 Long term (current) use of anticoagulants; Z79.899 Other long term (current) drug therapy; Z85.3 Personal history of malignant neoplasm of breast; Z90.13 Acquired absence of bilateral breasts and nipples; Z79.891 Long term (current) use of opiate analgesic; Z79.02 Long term (current) use of antithrombotics/antiplatelets; Z88.2 Allergy status to sulfonamides; Z88.8 Allergy status to other drugs, medicaments and biological substances; Z88.6 Allergy status to analgesic agent
CPT/HCPCS: 36415; 70450; 71045; 80048; 80053; 80177; 81001; 83735; 84100; 84443; 85025; 85610; 85730; 87086; 92610; 95819; 97162; 97166; 99285; A4216; J2405

== ENCOUNTER 2025-06-07 11:51 | Emergency (ER) | payer MEDICARE, MEDICAID, SELFPAY ==
[2025-06-07 11:53] VITALS: BP 163/115; PULSE 78; RESP 16; TEMP 36.6; O2SAT 98
--- NOTE | 2025-06-07 14:23 | ED.RN ---
Family member/POA upset regarding the wait time and having been placed in a hallway area. States that she came by ambulance, doesn't that get us a room quicker. I apologized and explained to the patient and family member that the ED is experiencing very high volumes and high acuity. Explained how we utilize hallway beds so the ED physician could evaluate and determine plan of care. Service recovery unsuccessful, family member continued to show frustration.
[2025-06-07] MEDS: 0.9% Normal Saline (1000mL) 1,000 ML 999 ML IV (15:49)
[2025-06-07 15:51] LABS: Hematocrit 43.7 % (37-47); Hemoglobin 14.6 g/dL (12.0-15.0); Immature Granulocytes Count 0.030 X10^3/uL (0.0-0.0); Mean Corp Hgb Conc 33.4 g/dL (32-36); Mean Corpuscular Volume 95.8 fL (81-99); Mean Platelet Vol. 10.4 fl (6.2-12.0); NRBC Flagged by Analyzer 0 % (0-5); POSITIVE DIFFERENTIAL YES; Platelet Count 208 K/mm3 (150-450); RBC Distribution Width CV 13.0 % (11.6-14.6); RBC Distribution Width SD 46.2 fl (35.1-43.9); Red Blood Count 4.56 M/mm3 (4.2-5.4); White Blood Count 10.7 K/mm3 (4.4-11.0)
--- NOTE | 2025-06-07 16:03 | EDS_ITS ---
HPI History of Present Illness Chief Complaint: Other, Pain/Inj Narrative Narrative: Patient 73-year-old female with past medical history atrial fibrillation on Eliquis, seizure, sick sinus syndrome, hypertension, hyperlipidemia, CVA who presented to the emergency department with concern for rash on her neck. She states that there was some redness noted on the right side her neck and when she woke up this morning this was significantly worsened with swelling prompting them to send her here to be further evaluated. Per family at bedside they note that this is never happened before and therefore they were concerned about this. Patient denies any dental pain, denies any difficulty swallowing and has been eating and drinking appropriately without any difficulty. Patient states that she does have dentures and these are fitting well without any difficulty no changes. [facility] Medical History Acute anal fissure Acute constipation Epileptic seizure Atrial fibrillation Palpitations Sick sinus syndrome Bilateral breast cancer Cardiac pacemaker in situ Essential hypertension Hyperlipidemia Seizure disorder as sequela of cerebrovascular accident CVA (cerebral vascular accident) Bradycardia Home Medications ?Medication ?Instructions ?Recorded ?Last Taken ?Type aspirin 81 mg chewable tablet 81 mg PO DAILY 04/23/15 08/05/24 History carboxymethylcellulose 0.5 2 drp EACH EYE DAILY PRN RI N Dry 12/25/18 12/25/18 History %-glycerin 0.9 % eye drops Eye multivitamin-iron 9 mg-folic acid 1 tab PO DAILY suppl ement 12/25/18 08/05/24 History 400 mcg-calcium and minerals tablet polyethylene glycol 3350 17 17 gm PO DAILY constipatio n 12/25/18 08/05/24 History gram/dose oral powder prochlorperazine maleate 10 mg 10 mg PO Q6H PRN nausea and 05/26/19 Unknown History tablet (Compazine) vomiting atorvastatin 40 mg tablet 40 mg PO DAILY 08/05/24 Unkn own History nystatin 100,000 unit/gram topical 1 applic topical BI D PRN rash 08/05/24 Unknown History powder (Nyamyc) apixaban 5 mg tablet (Eliquis) 5 mg PO BID 30 days #60 tabs 08/07/24 Unknown Rx baclofen 10 mg tablet 5 mg (1/2 x 10 mg) PO QHS 30 days 08/07/24 Unknown Rx #15 tabs cephalexin 500 mg capsule 500 mg PO TID 3 days #9 caps 08/07/24 Unknown Rx clonazepam 0.5 mg tablet 0.5 mg PO BID 3 days #6 tabs 08/07/24 Unknown Rx diltiazem HCl 180 mg 180 mg PO DAILY 30 days #30 caps 08/07/24 Unknown Rx capsule,extended release 24 hr levetiracetam 750 mg tablet 750 mg PO BID 90 days #180 tabs 08/07/24 Unknown Rx (Keppra) sennosides 8.6 mg tablet (senna) 17.2 mg (2 x 8.6 mg) PO BID 5 days 08/07/24 Unknown Rx #20 tabs valsartan 160 mg tablet 160 mg PO DAILY 30 days #30 tabs 08/07/24 Unknown Rx clindamycin HCl 300 mg capsule 300 mg PO TID 5 days #1 5 caps 06/07/25 Unknown Rx (Cleocin HCl) Allergy/AdvReac Type Severity Reaction Status Date / Time hydrochlorothiazide Allergy Intermediate Hives Verified 06/07/25 14:58 Sulfa (Sulfonamide Allergy Unknown Unknown Verified 06/07/25 14:58 Antibiotics) tetracycline Allergy Unknown Unknown Verified 06/07/25 14:58 naproxen AdvReac Swelling Verified 06/07/25 14:58 Family History Mother Heart disease Diabetes Hypertension Cancer breast Father Cancer Brother CVA (cerebral vascular accident) Surgical History S/P cardiac pacemaker procedure History of partial mastectomy of left breast Hx of total mastectomy of right breast History of section Social History household members: family housing: house current occupational status: retired Smoking Status: Never smoker alcohol intake: never substance use type: does not use caffeine: No ROS ROS ED ROS Narrative Constitutional: Denies any fevers, chills, headaches E neck: Complains of redness and swelling on the right side as noted above Cardiovascular: Denies chest pain Respiratory: Denies shortness of breath Abdomen: Denies nausea vomit diarrhea Neurological: Denies numbness, weakness, tingling Musculoskeletal: Denies back pain Skin: Complains of redness to her neck as noted above EXAM Physical Exam Narrative Exam Narrative: General: Patient was lying in bed rest comfortably did not appear to be in acute distress Head: Atraumatic, normocephalic Eyes: PERRL bilaterally, EOMI bilaterally, no conjunctival injection noted Neck: Soft, supple, trachea midline, patient does have asymmetric swelling to the right side of her neck no concern for Oumar's angina Cardiovascular: Regular rate Respiratory: Clear to auscultation bilaterally Extremities: Patient moving all extremities Neurological: Patient following commands is at baseline Skin: Patient has erythema noted to the right side of her neck no petechia no purpura no sloughing skin noted Const Vital Signs: 06/07/25 11:53 06/07/25 16:51 Temperature 97.8 F Temperature Source Oral Pulse Rate 78 82 Respiratory Rate 16 16 Blood Pressure 163/115 H 140/88 H Blood Pressure Mean 131 105 Pulse Ox 98 95 Oxygen Delivery Method Room Air MDM MDM MDM Narrative Medical decision making narrative: Patient is a 79-year-old female who presented to the emergency department the chief complaint of rash to the right side of neck. On the differential diagnosis includes but not limited to cellulitis, goiter, thyroid mass/cancer, Oumar's angina although clinically have low suspicion for this. Once workup is obtained reviewed she will be reevaluated. Patient CBC reviewed and showed a white blood count of 10.7, heme was 14.6, plate count was noted be 208. Patient sodium was noted 142, [place] 4.2, creatinine 0.80. Patient AST and ALT normal at 20 and 10 respectively. Patient TSH normal at 0.71 free T4 and T3 normal at 1.20 and 1.8 respectively. Patient went down to obtain the CT however she her disclosed that she has a allergy to contrast and she developed hives this was confirmed with family hours therefore was decided to bring her back to premedicate her. Patient was to be premedicated and she states that she does not want to obtain the CT scan and she wants to go home since she has been here since 11 AM this morning. I discussed with her that the risk of this is the swelling could worsen and occlude her airway causing her to . She verbalized understand this and still would like to go home she will be placed on oral clindamycin with first dose given here in the emergency department. She was advised to follow-up with her doctor and return for worsening symptoms or other concerns. All course concerns answered she left AGAINST MEDICAL ADVICE Lab Data Labs: Laboratory Results - last 24 hr 06/07/25 15:43 WBC 10.7 RBC 4.56 Hgb 14.6 Hct 43.7 MCV 95.8 MCH 32.0 MCHC 33.4 RDW Std Deviation 46.2 H RDW Coeff of Marilin 13.0 Plt Count 208 MPV 10.4 Immature Gran % (Auto) 0.300 Neut % (Auto) 86.7 H Lymph % (Auto) 4.4 L [place] % (Auto) 8.4 Eos % (Auto) 0.0 Baso % (Auto) 0.2 Absolute Neuts (auto) 9.2 H Absolute Lymphs (auto) 0.47 L Nucleated RBC % 0 Sodium 142 Potassium 4.2 Chloride 103 Carbon Dioxide 24.8 Anion Gap 14 BUN 12 Creatinine 0.80 Est GFR (MDRD) Non-Af 75 BUN/Creatinine Ratio 15.1 Glucose 124 H Calcium 9.5 Total Bilirubin 1.02 AST 20 ALT 10 Alkaline Phosphatase 111 H Total Protein 7.0 Albumin 3.9 Globulin 3.2 Albumin/Globulin Ratio 1.2 TSH 0.711 Free T4 1.20 Free T3 pg/dL 1.8 L Discharge Plan Triage Chief Complaint: Other, Pain/Inj ED Provider: Adria Brar Dx/Rx/DC Orders Clinical Impression: Neck swelling, Essential hypertension, Atrial fibrillation Clinical Impression: (Ruled Out): Hyperlipidemia Prescriptions: New clindamycin HCl [Cleocin HCl] 300 mg capsule 300 mg PO TID 5 Days Qty: 15 0RF No Action prochlorperazine maleate [Compazine] 10 mg tablet 10 mg PO Q6H PRN (Reason: nausea and vomiting) aspirin 81 MG tablet,chewable 81 mg PO DAILY Patient Comments: HEART HEALTH/ PREVENTION Rx Instructions: takes saturday- saturday and saturday polyethylene glycol 3350 238 GM powder 17 gm PO DAILY carboxymethylcellulose-glycern 15 ML drops 2 drp EACH EYE DAILY PRN PRN (Reason: Dry Eye) [id number]-calcium-mins 1 EACH tablet 1 tab PO DAILY atorvastatin 40 mg tablet 40 mg PO DAILY nystatin [Nyamyc] 100,000 unit/gram Powder 1 applic topical BID PRN (Reason: rash) Protocol: *Topical Application Instructions APPLICATION INSTRUCTIONS: to groin sennosides [senna] 8.6 mg Tablet 17.2 mg PO BID 5 Days Qty: 20 0RF clonazepam 0.5 mg Tablet 0.5 mg PO BID 3 Days Qty: 6 0RF cephalexin 500 mg capsule 500 mg PO TID 3 Days Qty: 9 0RF levetiracetam [Keppra] 750 mg tablet 750 mg PO BID 90 Days Qty: 180 1RF diltiazem HCl 180 mg capsule,extended release 24hr 180 mg PO DAILY 30 Days Qty: 30 0RF baclofen 10 MG tablet 5 mg PO QHS 30 Days Qty: 15 0RF Patient Comments: MUSCLE RELAXER valsartan 160 mg tablet 160 mg PO DAILY 30 Days Qty: 30 0RF Eliquis 5 mg tablet 5 mg PO BID 30 Days Qty: 60 0RF Primary Care Provider: Nelia Quinonez Referrals: Nelia Quinonez MD [Primary Care Provider, Internal Medicine] Activity Restrictions/Additional Instructions: Follow-up with your doctor in the outpatient setting. Return with worsening symptoms or other concerns. Take antibiotics as prescribed. Your blood work did not show any acute findings today. Print Language: Portuguese Disposition Disposition: Against Medical Advice
[2025-06-07 16:31] LABS: AST(SGOT) 20 U/L (<=31); Alanine Aminotransfer ALT/SGPT 10 U/L (<=34); Albumin, Serum 3.9 g/dL (3.4-4.8); Alkaline Phosphatase 111 U/L (35-104); Anion Gap 14 (7-18); BUN 12 mg/dL (4-19); BUN/Creat Ratio 15.1 RATIO (10-20); Calcium,Total 9.5 mg/dL (7.6-11.0); Carbon Dioxide 24.8 mmol/L (20.0-29.0); Chloride 103 mmol/L (96-106); Free T3 1.8 pg/mL (2.18-3.98); Globulin 3.2 g/dL (2.2-4.2); Glucose 124 mg/dL (70-99); Potassium 4.2 mmol/L (3.5-5.1)
[2025-06-07 16:51] VITALS: BP 140/88; PULSE 82; RESP 16; O2SAT 95
[2025-06-07 18:00] VITALS: BP 128/76; PULSE 78; TEMP 37.2
--- NOTE | 2025-06-07 18:12 | ED.RN ---
PT EXPRESSES SHE WANTS TO LEAVE AND NOT GET CT OF NECK. STATES THAT SHE WILL GET IT OUTPT. DR. MILAN AWARE AND TAKES AMA PAPER WORK IN.
== END 2025-06-07 18:40 | disposition left against medical advice (07) ==
PROVIDERS: Emergency Provider Emergency Medicine; PCP Internal Medicine; Visit Provider Emergency Medicine
DX: R22.1 Localized swelling, mass and lump, neck (principal); I48.91 Unspecified atrial fibrillation; I10 Essential (primary) hypertension; Z79.01 Long term (current) use of anticoagulants; Z79.82 Long term (current) use of aspirin; Z79.899 Other long term (current) drug therapy; Z53.29 Procedure and treatment not carried out because of patient's decision for other reasons
CPT/HCPCS: 80053; 84439; 84443; 84481; 85025; 96360; 99285